=== PATIENT | female | born 1995 | race Caucasian/White ===

== ENCOUNTER 2016-04-11 16:04 | Observation (INO) | payer OTHER ==
[~2016-04-11 16:04] MED LIST: PREN1PAK2 PO; PROM25TA5 PO; PROT40TA PO
[2016-04-11 17:00] LABS: BLOOD, URINE NEG (NEG); COMMENT (UR) CULT NOT INDICATED; CULTURE IF INDICATED CULT NOT INDICATED; GLUCOSE,URINE NEG (NEG); KETONE, URINE NEG (NEG); NITRITE,URINE NEG (NEG); PH, URINE 6.5 (5.0-8.5); SQUAMOUS EPITHELIAL CELL URINE 1 /hpf (0-5); URINE COLOR YELLOW (YELLW/STRAW)
[2016-04-11] MEDS ORDERED: LACTATED RINGER'S 1000 ML INJ 1,000 ML IV ONE (17:15)
--- NOTE | 2016-04-11 17:18 | PD ---
HPI Chief Complaint Contractions sent from [facility] Date Seen: Apr 11, 2016 Travel History International Travel<30 Days: No Contact w/Intl Traveler<30Days: No History of Present Illness HPI Ms. Potts is a at 34/3 with [facility]. Patient was seen this afternoon by Mrs. Lilly [facility] at [facility] and sent over from clinic for evaluation of labor. Patient has been having contractions every 6 minutes since 1300 this afternoon she endorses good movement without loss of fluid, vaginal discharge, or bleeding. Estimated due date 05/21/16 from first ultrasound. Most recent ultrasound performed on 02/29/16 with PAT of 13.4, heart rate of 129, cephalic presentation with appropriate growth and anatomy. She states this has been uncomplicated thus far. History Past Medical History Narrative Medical Seizure and cardiac arrest leading to bundle branch block after OD from Concerta at 12 y/o. Self resolve and since been cleared by cardiology. Obstetric History Obstetric History Past Surgical History Narrative Surgical Denies Family History Narrative Family History Denies significant Hx Social History Alcohol Use: No Tobacco Use: Yes (7 cigarettes a day) Substance Abuse: Yes (marijuana with last use 1 week ago) Allergies-Medications (Allergen,Severity, Reaction): Coded Allergies: No Known Allergies (Verified , 04/11/16) Home Meds Active Scripts Pantoprazole (Protonix)40 Mg Tab40 Mg PO DAILY #30 TAB Ref 5 Prov:Radha Neal 03/13/16 Promethazine (Phenergan)25 Mg Tab25 Mg PO Q6H PRN (Nausea/Vomiting) #30 TAB Ref 2 Prov:Radha Neal 03/13/16 Reported Medications W/O Vit A W/ Fe Carbo Pack (Citranatal Dha Pack)27-1 & 250 Mg Pack1 Ea PO DAILY #6 BLISTER Ref 0 30 day supply. 02/14/16 Review of Systems General / Constitutional: No: Fever Eyes: No: Blurred Vision HENT: No: Headaches Cardiovascular: No: Chest Pain or Discomfort, Palpitations Respiratory: No: Short of Breath Gastrointestinal: Diarrhea, No: Nausea, Vomiting Genitourinary: No: Dysuria, Discharge, Vaginal Bleeding Musculoskeletal: No: Weakness Skin: No Rash Neurologic: No: Headache Psychiatric: No: Substance Abuse Endocrine: No: Polydipsia Hematologic/Lymphatic: No Lymph Node Enlargement Physical Exam Narrative GENERAL: Well-nourished, well-developed patient. SKIN: Warm and dry. HEAD: Normocephalic and atraumatic. EYES: No scleral icterus. No injection or drainage. ENT: No nasal drainage noted. Mucous membranes pink. Airway patent. NECK: Supple, trachea midline. No JVD. CARDIOVASCULAR: Regular rate and rhythm without murmurs, gallops, or rubs. RESPIRATORY: Breath sounds equal bilaterally. No accessory muscle use. ABDOMEN/GI: Abdomen soft, non-tender, bowel sounds present, no rebound, no guarding Gravid to 34 weeks size GENITOURINARY: External Genitalia: intact and normal in appearance Cervix: Posterior Dilatation: 3 cm Effacement: 20% Station: -2 Presentation: Cephalic Membranes: Intact Uterine Contractions: Every 3 minutes FHT's: Category: 1 Baseline: 120 Reactive: Positive Variability: Moderate Decels: 0 EXTREMITIES: No cyanosis or edema. BACK: Nontender without obvious deformity. No CVA tenderness. NEUROLOGICAL: Awake and alert. Motor and sensory grossly within normal limits. Five out of 5 muscle strength in all muscle groups. Normal speech. Data Data Vital Signs Reviewed: Yes Orders Vital Signs (Adult) .ON ADMISSION (04/11/16 16:25) ^ Labor Status (04/11/16 16:25) ^ Non Stress Test (04/11/16 16:25) ^ Hydration (04/11/16 16:25) Urinalysis - C+S If Indicated (04/11/16 16:32) [facility] Medical Record Reviewed: Yes Plan Ms. Potts is a at 34/3 with contractions [facility] 1. IUP at 34 weeks -Continue routine antepartum care -Category 1 tracing, reassuring -Encouraged oral hydration 2. R/O Labor -F/U fibronectin -Continuous monitoring -CBC, CMP,UA: Pending -1L LR bolus -Team will admit for observation for possible labor DW: Dr. Ochoa Diagnosis Diagnosis: Primary Impression: 34 weeks gestation of Additional Impression: contractions Miles Ridley MD R1 Apr 11, 2016 17:18 Miles Ridley MD R1 Apr 11, 2016 17:18
[2016-04-11] MEDS: LACTATED RINGER'S 1000 ML INJ 1,000 ML IV SCH (17:40)
[2016-04-11] MEDS ORDERED: ALUMINUM/MAGNESIUM/SIMETH 30 ML CUP PO PRN (17:45)
[2016-04-11] MEDS ORDERED: ZOLPIDEM TARTRATE 5 MG TAB PO PRN (17:45)
[2016-04-11] MEDS ORDERED: ONDANSETRON HCL 4 MG/2 ML VIAL IV PRN (17:45)
[2016-04-11] MEDS ORDERED: ACETAMINOPHEN 325 MG TAB PO PRN (17:45)
--- NOTE | 2016-04-11 17:48 | HHI.HP ---
History & Physical H&P HPI Chief Complaint Contractions sent from [facility] Date Seen: Apr 11, 2016 Travel History International Travel<30 Days: No Contact w/Intl Traveler<30Days: No History of Present Illness HPI Ms. Potts is a at 34/3 with [facility]. Patient was seen this afternoon by Mrs. Lilly Hoover at the [facility] and sent over from clinic for evaluation of labor. Patient has been having contractions every 6 minutes since 1300 this afternoon she endorses good movement without loss of fluid, vaginal discharge, or bleeding. Estimated due date 05/21/16 from first ultrasound. Most recent ultrasound performed on 02/29/16 with PAT of 13.4, heart rate of 129, cephalic presentation with appropriate growth and anatomy. She states this has been uncomplicated thus far. History (Limited) History Past Medical History Narrative Medical Seizure and cardiac arrest leading to bundle branch block after OD from Concerta at 12 y/o. Self resolve and since been cleared by cardiology. Obstetric History Obstetric History Past Surgical History Narrative Surgical Denies Family History Narrative Family History Denies significant Hx Social History Alcohol Use: No Tobacco Use: Yes (7 cigarettes a day) Substance Abuse: Yes (marijuana with last use 1 week ago) Allergies-Medications Allergies-Medications (Allergen,Severity, Reaction): Coded Allergies: No Known Allergies (Verified , 04/11/16) Home Meds Active Scripts Pantoprazole (Protonix)40 Mg Tab40 Mg PO DAILY #30 TAB Ref 5 Prov:Radha Neal 03/13/16 Promethazine (Phenergan)25 Mg Tab25 Mg PO Q6H PRN (Nausea/Vomiting) #30 TAB Ref 2 Prov:Radha Neal 03/13/16 Reported Medications W/O Vit A W/ Fe Carbo Pack (Citranatal Dha Pack)27-1 & 250 Mg Pack1 Ea PO DAILY #6 BLISTER Ref 0 30 day supply. 02/14/16 ROS Review of Systems General / Constitutional: No: Fever Eyes: No: Blurred Vision HENT: No: Headaches Cardiovascular: No: Chest Pain or Discomfort, Palpitations Respiratory: No: Short of Breath Gastrointestinal: Diarrhea, No: Nausea, Vomiting Genitourinary: No: Dysuria, Discharge, Vaginal Bleeding Musculoskeletal: No: Weakness Skin: No Rash Neurologic: No: Headache Psychiatric: No: Substance Abuse Endocrine: No: Polydipsia Hematologic/Lymphatic: No Lymph Node Enlargement Physical Exam Physical Exam Narrative GENERAL: Well-nourished, well-developed patient. SKIN: Warm and dry. HEAD: Normocephalic and atraumatic. EYES: No scleral icterus. No injection or drainage. ENT: No nasal drainage noted. Mucous membranes pink. Airway patent. NECK: Supple, trachea midline. No JVD. CARDIOVASCULAR: Regular rate and rhythm without murmurs, gallops, or rubs. RESPIRATORY: Breath sounds equal bilaterally. No accessory muscle use. ABDOMEN/GI: Abdomen soft, non-tender, bowel sounds present, no rebound, no guarding Gravid to 34 weeks size GENITOURINARY: External Genitalia: intact and normal in appearance Cervix: Posterior Dilatation: 3 cm Effacement: 20% Station: -2 Presentation: Cephalic Membranes: Intact Uterine Contractions: Every 3 minutes FHT's: Category: 1 Baseline: 120 Reactive: Positive Variability: Moderate Decels: 0 EXTREMITIES: No cyanosis or edema. BACK: Nontender without obvious deformity. No CVA tenderness. NEUROLOGICAL: Awake and alert. Motor and sensory grossly within normal limits. Five out of 5 muscle strength in all muscle groups. Normal speech. Data Data Data Vital Signs Reviewed: Yes Orders Vital Signs (Adult) .ON ADMISSION (04/11/16 16:25) ^ Labor Status (04/11/16 16:25) ^ Non Stress Test (04/11/16 16:25) ^ Hydration (04/11/16 16:25) Urinalysis - C+S If Indicated (04/11/16 16:32) [facility] Medical Record Reviewed: Yes Plan Ms. Potts is a at 34/3 with contractions [facility] 1. IUP at 34 weeks -Continue routine antepartum care -Category 1 tracing, reassuring -Encouraged oral hydration 2. R/O Labor -F/U fibronectin -Continuous monitoring -CBC, CMP,UA: Pending -1L LR bolus -Team will admit for observation for possible labor DW: Dr. Ochoa Diagnosis Diagnosis: Primary Impression: 34 weeks gestation of Additional Impression: contractions Miles Ridley MD R1 Apr 11, 2016 17:48
[2016-04-11 18:41] LABS: AUTOMATED NEUTROPHIL # 7.3 TH/MM3 (1.8-7.7); BASOPHIL % 0.4 % (0.0-2.0); EOSINOPHIL % 0.5 % (0.0-4.0); HEMATOCRIT 32.9 % (35.0-46.0); HEMO FLAGS DIFF FINAL; LYMPH % 22.5 % (9.0-44.0); LYMPHOCYTE # 2.4 TH/MM3 (1.0-4.8); MEAN CELL VOLUME 88.4 FL (80.0-100.0); MEAN CORPUSCULAR HEMOGLOBIN 30.7 PG (27.0-34.0); MEAN CORPUSCULAR HGB CONC 34.7 % (32.0-36.0); MONO % 6.5 % (0.0-8.0); NEUT % 70.1 % (16.0-70.0); PLATELET COUNT 264 TH/MM3 (150-450); RED BLOOD COUNT 3.72 MIL/MM3 (4.00-5.30); RED CELL DISTRIBUTION WIDTH 12.2 % (11.6-17.2); WHITE BLOOD COUNT 10.4 TH/MM3 (4.0-11.0)
[2016-04-11] MEDS: BETAMETHASONE SOD PHOS/ACETATE SUSP 30 MG/5 ML VIAL IM SCH (18:59)
[2016-04-11 19:18] LABS: AMPHETAMINE, URINE NEG (NEG); BARBITURATES, URINE NEG (NEG); COCAINE, URINE NEG (NEG)
[2016-04-11 20:34] LABS: ALKALINE PHOSPHATASE 162 U/L (45-117); ALT (GPT) 9 U/L (10-53); ANION GAP 11 MEQ/L (5-15); AST (GOT) 7 U/L (15-37); BLOOD UREA NITROGEN 5 MG/DL (7-18); CHLORIDE 106 MEQ/L (98-107); GLOMERULAR FILTRATION RATE 146 ML/MIN (>89); POTASSIUM 3.1 MEQ/L (3.5-5.1); SODIUM (NA) 139 MEQ/L (136-145); TOTAL BILIRUBIN ADULT 0.2 MG/DL (0.2-1.0)
--- NOTE | 2016-04-11 20:56 | PD.LABORPN ---
Subjective Subjective Patient continues to complain of pain in the lower abdomen states they feel like contractions the baby is active hurts more when the baby moves No leaking fluid no vaginal bleeding Objective Objective Pelvic exam is repeated and there was no cervical change from the admission the cervix is posterior its thick it's 3 cm Pelvic Exam: Cervix: [-] O steering Dilatation: [-] 3centimeter Effacement: [-] Thick Station: [-] Ballotable Presentation: [-] Vertex Membranes: [intact Uterine Contractions: [-] Irregular FHT's: Category: [-] 1 Baseline: [-] 120 Reactive: [-]+ Variability: [-] Moderate [id number] variability Decels: [-] Has an occasional variable Bedside ultrasound was done it is a vertex presentation the BPD measures 8.76 this is consistent with 35 weeks and 3 days Positive flexion Positive tone Positive breathing Amniotic fluid index is approximately 14 Reactive tracing Posterior grade 2 placenta no ultrasound evidence of abruption No previa Ultrasound shows that the internal os is open And that the membranes bulged down into the cervix slightly Assessment/Plan Assessment and Plan Assessment 34 weeks and 3 days by earlier ultrasounds 35 weeks and 3 days by bedside ultrasound this evening Diagnosed with premature labor/ contractions Patient was initiated with steroids her second dose is due at 4 PM April 12 tomorrow Antibiotic coverage penicillin Pain management And reevaluation As there is no cervical change we'll continue our observation of this patient noted toco lysis have been used Labs show the cultures not indicated on the urine White count is not elevated Positive marijuana Plan a management Tayler Shea MD Apr 11, 2016 20:56
[2016-04-11] MEDS ORDERED: PENICILLIN G POTASSIUM INJ 5,000,000 UNITS in SODIUM CHLORIDE 0.9% INJ 100 ML IV ONE (21:00)
[2016-04-11] MEDS: SODIUM CHLORIDE 0.9% FLUSH 5 ML FLUSH IVF SCH (21:00)
[2016-04-12] MEDS: PENICILLIN G POTASSIUM INJ 2,500,000 UNITS in SODIUM CHLORIDE 0.9% INJ 100 ML IV SCH ×6 (01:00→18:40)
[2016-04-12] MEDS: LACTATED RINGER'S 1000 ML INJ 1,000 ML IV SCH (03:40)
[2016-04-12] MEDS ORDERED: MULTIVIT/MIN/PREN/FOL AC/IRON PRENATAL TAB PO SCH (09:00)
[2016-04-12] MEDS ORDERED: DOCUSATE SODIUM 100 MG CAP PO SCH (09:00)
[2016-04-12] MEDS: SODIUM CHLORIDE 0.9% FLUSH 5 ML FLUSH IVF SCH (09:00)
[2016-04-12] MEDS: SODIUM CHLORIDE 0.9% FLUSH 5 ML FLUSH IVF PRN ×3 (09:24→13:00)
--- NOTE | 2016-04-12 09:29 | PD.OB.ANTE ---
Subjective Interval History OB team evaluated and examined patient this morning. No acute events overnight with stable vital signs. Patient's contractions subsided with IV fluid hydration. She endorses good movement without discharge, loss of fluid, or bleeding. She has no other complaints and denies any fevers, chills, and NVD , shortness of breath, chest pain, or calf tenderness. Antepartum ROS: Reports: movement normal, Denies: New complaints, Loss of fluid, Vaginal bleeding, Contractions Objective Lab & Micro Results Test 04/11/16 04/11/16 04/11/16 16:30 17:00 19:44 Urine Color YELLOW Urine Turbidity CLEAR Urine pH 6.5 Urine Specific [place] 1.011 Urine Protein NEG mg/dL Urine Glucose (UA) NEG mg/dL Urine Ketones NEG mg/dL Urine Occult Blood NEG Urine Nitrite NEG Urine Bilirubin NEG Urine Urobilinogen LESS THAN 2.0 MG/DL Urine Leukocyte Esterase TRACE Urine RBC LESS THAN 1 /hpf Urine WBC 1 /hpf Urine Squamous Epithelial 1 /hpf Cells Microscopic Urinalysis Comment CULT NOT INDICATED Urine Opiates Screen NEG Urine Barbiturates Screen NEG Urine Amphetamines Screen NEG Urine Benzodiazepines Screen NEG Urine Cocaine Screen NEG Urine Cannabinoids Screen POS White Blood Count 10.4 TH/MM3 Red Blood Count 3.72 MIL/MM3 Hemoglobin 11.4 GM/DL Hematocrit 32.9 % Mean Corpuscular Volume 88.4 FL Mean Corpuscular Hemoglobin 30.7 PG Mean Corpuscular Hemoglobin 34.7 % Concent Red Cell Distribution Width 12.2 % Platelet Count 264 TH/MM3 Mean Platelet Volume 8.9 FL Neutrophils (%) (Auto) 70.1 % Lymphocytes (%) (Auto) 22.5 % Monocytes (%) (Auto) 6.5 % Eosinophils (%) (Auto) 0.5 % Basophils (%) (Auto) 0.4 % Neutrophils # (Auto) 7.3 TH/MM3 Lymphocytes # (Auto) 2.4 TH/MM3 Monocytes # (Auto) 0.7 TH/MM3 Eosinophils # (Auto) 0.0 TH/MM3 Basophils # (Auto) 0.0 TH/MM3 CBC Comment DIFF FINAL Differential Comment Band and Hold Sodium Level 139 MEQ/L Potassium Level 3.1 MEQ/L Chloride Level 106 MEQ/L Carbon Dioxide Level 22.0 MEQ/L Anion Gap 11 MEQ/L Blood Urea Nitrogen 5 MG/DL Creatinine 0.53 MG/DL Estimat Glomerular Filtration 146 ML/MIN Rate Random Glucose 103 MG/DL Calcium Level 8.0 MG/DL Total Bilirubin 0.2 MG/DL Aspartate Amino Transf 7 U/L (AST/SGOT) Alanine Aminotransferase 9 U/L (ALT/SGPT) Alkaline Phosphatase 162 U/L Total Protein 6.0 GM/DL Albumin 2.3 GM/DL Physical Exam GENERAL: Well-nourished, well-developed patient. CARDIOVASCULAR: Regular rate and rhythm without murmurs, gallops, or rubs. RESPIRATORY: Breath sounds equal bilaterally. No accessory muscle use. ABDOMEN/GI: Abdomen soft, non-tender. Fundus: 34 GENITOURINARY: FHT's: Category: 1 Baseline: 120 Reactive: Positive Variability: Moderate Decels: None EXTREMITIES: No cyanosis or edema, non-tender, without signs of DVT. Assessment and Plan Assessment and Plan Ms. Potts is a at 34/3 with contractions admitted for observation to rule out labor. 1. IUP at 34 weeks -Continue routine antepartum care -Category 1 tracing, reassuring -Encouraged oral hydration 2. Labor -Betamethasone given 1 yesterday, with next dose due at 1600 on 04/12/16 -OB Diagnostic US: BPP 01/15 with good anatomy and growth. NG given for GBS coverage due to unknown status CBC: WBC 10.4, H/H 11.4/32.9, platelets 264 CMP: Potassium 3.1, repleted. Alkaline phosphatase 162 Discharge: OB team to reevaluate patient for likely discharge after second dose of steroids this evening if no cervical change and contractions. DW: Miles Wen MD R1 Apr 12, 2016 09:29
[2016-04-12 15:59] VITALS: BP 121/71; PULSE 82
[2016-04-12 16:01] VITALS: RESP 16
--- NOTE | 2016-04-12 18:58 | PD.OB.ANTE ---
Subjective Interval History History is 34 weeks to 35 weeks with threatened labor. Patient received IM steroids 24 hours ago and now for second shot. She's been here on labor and delivery for observation she has not been shamar over the last 12-18 hours. Her NST is been reactive no signs of distress and no regular contractions. Will proceed with second steroid shot & discharge patient. Objective Vital Signs Vital Signs Date Time Temp Pulse Resp B/P Pulse Ox O2 Delivery O2 Flow Rate FiO2 04/12/16 16:01 16 04/12/16 15:59 82 121/71 04/11/16 22:37 16 Lab & Micro Results Test 04/11/16 19:44 Sodium Level 139 MEQ/L Potassium Level 3.1 MEQ/L Chloride Level 106 MEQ/L Carbon Dioxide Level 22.0 MEQ/L Anion Gap 11 MEQ/L Blood Urea Nitrogen 5 MG/DL Creatinine 0.53 MG/DL Estimat Glomerular Filtration 146 ML/MIN Rate Random Glucose 103 MG/DL Calcium Level 8.0 MG/DL Total Bilirubin 0.2 MG/DL Aspartate Amino Transf 7 U/L (AST/SGOT) Alanine Aminotransferase 9 U/L (ALT/SGPT) Alkaline Phosphatase 162 U/L Total Protein 6.0 GM/DL Albumin 2.3 GM/DL Physical Exam GENERAL: Well-nourished, well-developed patient. CARDIOVASCULAR: Regular rate and rhythm without murmurs, gallops, or rubs. RESPIRATORY: Breath sounds equal bilaterally. No accessory muscle use. ABDOMEN/GI: Abdomen soft, non-tender. Fundus: [-] GENITOURINARY: External Genitalia: intact and normal in appearance Cervix: [-] Dilatation: [-] Effacement: [-] Station: [-] Presentation: [-] Membranes: [-] Uterine Contractions: [-] FHT's: Category: [-] Baseline: [-] Reactive: [-] Variability: [-] Decels: [-] EXTREMITIES: No cyanosis or edema, non-tender, without signs of DVT. Assessment and Plan Assessment and Plan Ms. Potts is a at 34/3 with contractions admitted for observation to rule out labor. 1. IUP at 34 weeks -Continue routine antepartum care -Category 1 tracing, reassuring -Encouraged oral hydration 2. Labor -Betamethasone given 1 yesterday, with next dose due at 1600 on 04/12/16 -OB Diagnostic US: BPP 10/10 with good anatomy and growth. NG given for GBS coverage due to unknown status CBC: WBC 10.4, H/H 11.4/32.9, platelets 264 CMP: Potassium 3.1, repleted. Alkaline phosphatase 162 Discharge: OB team to reevaluate patient for likely discharge after second dose of steroids this evening if no cervical change and contractions. DW: Rakesh Hector II, MD Apr 12, 2016 18:58
[2016-04-12] MEDS: BETAMETHASONE SOD PHOS/ACETATE SUSP 30 MG/5 ML VIAL IM SCH (19:16)
[2016-04-17 11:05] LABS: BATH SALTS (MDPV) UR NEG (NEG); ECSTASY (MDMA) UR NEG (NEG); HEROIN (6-ACETYLMORPHINE) UR NEG (NEG); K2 SPICE UR NEG (NEG); OBMETHADONE UR NEG (NEG); OXYCODONE (PERCODAN) NEG (NEG); PHENCYCLIDINE URINE NEG (NEG)
[2016-05-28] MEDS ORDERED: NORE0.354 PO (13:54)
[2016-05-28] MEDS ORDERED: DIFL150T PO (13:54)
[2016-07-10] MEDS ORDERED: MACR100C2 PO (16:34)
== END 2016-04-12 19:27 | disposition home or self-care (01) ==
LOC: HOBED 16:04 → H2EA 17:34
PROVIDERS: ADMIT Obstetrics & Gynecology; ATTEND Obstetrics & Gynecology
DX: O60.03 Preterm labor without delivery, third trimester (principal); O99.333 Smoking (tobacco) complicating pregnancy, third trimester; F17.210 Nicotine dependence, cigarettes, uncomplicated; Z3A.34 34 weeks gestation of pregnancy; Z86.74 Personal history of sudden cardiac arrest
CPT/HCPCS: 59025; 76816; 80053; 80307; 81001; 85025; 96360; 99284; G0378; G0481; J0702; J2540; J3010; J7120; 80352; 80354; 80356; 80358; 80359; 80371; 83789; 83992; G0480

== ENCOUNTER 2016-05-20 16:55 | Inpatient (IN) | payer OTHER ==
[2016-05-20] VITALS (51 sets, daily range): BP systolic 85–150; BP diastolic 49–92; PULSE 72–168; RESP 18; TEMP 98.7
[~2016-05-20] VITALS: Ht 170.2 cm; Wt 78.0 kg
[~2016-05-20 16:55] MED LIST changes: +DIPHTH/TETANUS/ACEL PERTUSSIS (BOOSTER) 0.5 ML VIAL/PFS IM ONE; +MEASLES, MUMPS, RUBELLA VACCINE 0.5 ML VIAL SQ ONE
[2016-05-20] MEDS ORDERED: LACTATED RINGER'S 1000 ML INJ 1,000 ML IV PRN (17:10)
[2016-05-20] MEDS ORDERED: LACTATED RINGER'S 1000 ML INJ 1,000 ML IV SCH (17:10)
[2016-05-20] MEDS ORDERED: OXYTOCIN 30 UNITS-500ML PREMIX 500 ML IV ONE (17:15)
[2016-05-20] MEDS ORDERED: LIDOCAINE HCL 1% 50 ML VIAL I-DERMAL PRN (17:15)
[2016-05-20] MEDS ORDERED: SODIUM CHLORID 0.9% 500 ML INJ 500 ML IV PRN (17:15)
[2016-05-20] MEDS ORDERED: PENICILLIN G POTASSIUM INJ 5,000,000 UNITS in SODIUM CHLORIDE 0.9% INJ 100 ML IV ONE (17:15)
[2016-05-20] MEDS ORDERED: CITRIC ACID-SODIUM CITRATE LIQ 30 ML UDC PO SCH (17:15)
[2016-05-20] MEDS ORDERED: LIDOCAINE HCL 1% 50 ML VIAL INFIL PRN (17:15)
[2016-05-20] MEDS ORDERED: MINERAL OIL 10 ML VIAL TOPICAL PRN (17:15)
[2016-05-20] MEDS ORDERED: fentaNYL 2MCG-BUPIV 0.125% INJ 100 ML ONE (17:17)
[2016-05-20] MEDS ORDERED: ePHEDrine/NS 25 MG/5 ML SYR ONE (17:17)
--- NOTE | 2016-05-20 17:19 | PD ---
HPI Chief Complaint Complaints of contractions Date Seen: May 20, 2016 Travel History International Travel<30 Days: No Contact w/Intl Traveler<30Days: No Known Affected Area: No History of Present Illness HPI Patient is 21-year-old white female at 40 weeks gestation presents in active labor 6 cm intact membranes no bleeding. The contractions are regular heart rate tracing is reactive Para: 0 : 1 History Past Medical History Medical History: Denies Significant Hx Social History Alcohol Use: No Tobacco Use: No Substance Abuse: No Allergies-Medications (Allergen,Severity, Reaction): Coded Allergies: No Known Allergies (Verified , 05/16/16) Home Meds Active Scripts Pantoprazole (Protonix)40 Mg Tab40 Mg PO DAILY #30 TAB Ref 5 Prov:Radha Neal 03/13/16 Promethazine (Phenergan)25 Mg Tab25 Mg PO Q6H PRN (Nausea/Vomiting) #30 TAB Ref 2 Prov:Radha Neal 03/13/16 Reported Medications W/O Vit A W/ Fe Carbo Pack (Citranatal Dha Pack)27-1 & 250 Mg Pack1 Ea PO DAILY #6 BLISTER Ref 0 30 day supply. 02/14/16 Review of Systems General / Constitutional: No: Fever, Weight Gain, Chills, Other Eyes: No: Diploplia, Blurred Vision, Visual changes, Pain, Photophobia HENT: No: Headaches, Vertigo, Lightheadedness Cardiovascular: No: Irregular Rhythm, Chest Pain or Discomfort, Palpitations, Tachycardia, Syncope, Varicosities, Edema, Cyanosis Respiratory: No: Cough, Short of Breath, Other Gastrointestinal: Nausea, Vomiting, No: Diarrhea Genitourinary: No: Decreased Urinary Output, Oliguria Musculoskeletal: No: Limited ROM, Weakness, Cramping, Edema, Pain Skin: No Rash, No Itching, No Dryness, No Lumps, No Change in Pigmentation, No Change in Nails, No Alopecia, No Lesions Neurologic: No: Weakness, Dizziness, Syncope, Focal Abnormalities, Coordination Problem, Headache, Slurred Speech, Seizures Psychiatric: No: Depression, Suicidal Ideations, Homicidal Ideation Endocrine: No: Heat Intolerance, Cold Intolerance, Polydipsia, Polyuria, Other Physical Exam Narrative GENERAL: Well-nourished, well-developed patient. SKIN: Warm and dry. HEAD: Normocephalic and atraumatic. EYES: No scleral icterus. No injection or drainage. ENT: No nasal drainage noted. Mucous membranes pink. Airway patent. NECK: Supple, trachea midline. No JVD. CARDIOVASCULAR: Regular rate and rhythm without murmurs, gallops, or rubs. RESPIRATORY: Breath sounds equal bilaterally. No accessory muscle use. BREASTS: Bilateral exam showed no masses , no retractions, no nipple discharge. ABDOMEN/GI: Abdomen soft, non-tender, bowel sounds present, no rebound, no guarding Gravid to [-40] weeks size Fundal Height: [38 cm-] GENITOURINARY: External Genitalia: intact and normal in appearance BUS glands: [-] Cervix: [-] Dilatation: [-6] Effacement: [-80] Station: [-2] Presentation: [-vtx] Membranes: [intact ] Uterine Contractions: [-reg] FHT's: Category: [1-] Baseline: [133-] Reactive: [-yes] Variability: [-mod] Decels: [early decels-] EXTREMITIES: No cyanosis or edema. BACK: Nontender without obvious deformity. No CVA tenderness. NEUROLOGICAL: Awake and alert. Motor and sensory grossly within normal limits. Five out of 5 muscle strength in all muscle groups. Normal speech. Data Data Orders Ob (2e) Additional Admit Info (05/20/16 17:00) Admit To Inpatient (05/20/16 ) Code Status (05/20/16 17:10) Vital Signs (Adult) .Per protocol (05/20/16 17:10) ^ Heart (05/20/16 17:10) ^ Amnioinfusion (05/20/16 17:10) Urinary Catheter Management .ONCE (05/20/16 17:10) Lactated Ringer's 1000 Ml Inj (Lr 1000 M (05/20/16 17:10) Lactated Ringer's 1000 Ml Inj (Lr 1000 M (05/20/16 17:10) Sodium Chlorid 0.9% 500 Ml Inj (Ns 500 M (05/20/16 17:15) Sodium Chlor 0.9% 1000 Ml Inj (Ns 1000 M (05/20/16 17:30) Lidocaine 1% Inj (50 Ml) (Xylocaine 1% I (05/20/16 17:15) Citric Acid-Sodium Citrate Liq (Bicitra (05/20/16 17:15) Fentanyl Inj (Fentanyl Inj) (05/20/16 17:15) Fentanyl Inj (Fentanyl Inj) (05/20/16 17:15) Penicillin G Potassium Inj (Pfizerpen-G (05/20/16 17:15) Penicillin G Potassium Inj (Pfizerpen-G (05/20/16 21:15) Resp Oxygen Non Rebreathe Mask (05/20/16 ) ^ Epidural / Intrathecal Infus (05/20/16 17:10) Oxytocin 30 Units-500ml Premix (Pitocin (05/20/16 17:15) Lidocaine 1% Inj (50 Ml) (Xylocaine 1% I (05/20/16 17:15) Light Mineral Oil (Muri-Lube Oil) (05/20/16 17:15) Inpatient Certification (05/20/16 ) MDM Interpretation(s) This patient is 17-year-old primipara at 40 weeks in active labor 6 centimeters dilated, no bleeding contractions regular heart rate tracing is reactive. [facility] Plan The plan is to admit the patient and anticipate vaginal delivery Diagnosis Diagnosis: Primary Impression: Abdominal pain affecting , antepartum Rakesh Daniel II, MD May 20, 2016 17:19
--- NOTE | 2016-05-20 17:29 | PD ---
HPI Chief Complaint labor Date Seen: May 20, 2016 Travel History International Travel<30 Days: No Contact w/Intl Traveler<30Days: No History of Present Illness HPI Ms. Potts is a 21 yo G1 at 39 5/7 week patient of [facility] who presents with contractions. History supplemented by patient's mother due to patient abdominal pain/contractions. Patient reports that she is GBS positive. No complications reported; patient specifically denies ultrasound abnormalities, gestational hypertension, and gestational diabetes. Patient denies history of herpes or genital lesions. Patient states she had chlamydia 3 years ago but has been negative since. No reported shortness of breath, calf tenderness, or chest pain. Mother reports that she smokes 23 cigarettes daily during , but denies alcohol or illicit drug use. Per prior records, patient had prior positive UDS for marijuana 04/2016. 1 hr glucose testing elevated; patient did not obtain 3 hr testing. Para: 0 : 1 History Past Medical History Narrative Medical Nausea/vomiting during Obstetric History Obstetric History G1 Past Surgical History Surgical History: No Previous Surgery Family History Narrative Family History None reported Social History Alcohol Use: No Tobacco Use: Yes Substance Abuse: Yes (marijuana on prior UDS) Allergies-Medications (Allergen,Severity, Reaction): Coded Allergies: No Known Allergies (Verified , 05/20/16) Home Meds Active Scripts Pantoprazole (Protonix)40 Mg Tab40 Mg PO DAILY #30 TAB Ref 5 Prov:Radha Neal 03/13/16 Promethazine (Phenergan)25 Mg Tab25 Mg PO Q6H PRN (Nausea/Vomiting) #30 TAB Ref 2 Prov:Radha Neal 03/13/16 Reported Medications W/O Vit A W/ Fe Carbo Pack (Citranatal Dha Pack)27-1 & 250 Mg Pack1 Ea PO DAILY #6 BLISTER Ref 0 30 day supply. 02/14/16 Review of Systems Cardiovascular: No: Chest Pain or Discomfort Respiratory: No: Cough, Short of Breath Gastrointestinal: Nausea (during ), Vomiting (during ) Physical Exam Narrative BP 129/78 HR 87 GENERAL: Mild distress due to pain of labor SKIN: Multiple small crusted circular lesions on legs; do not seem to follow dermatomal pattern seem consistent with insect bites EYES: No scleral icterus. No injection or drainage. ENT: No nasal drainage noted. Mucous membranes pink. Airway patent. CARDIOVASCULAR: Regular rate and rhythm without murmurs to auscultation RESPIRATORY: Normal rate; clear to auscultation bilaterally ABDOMEN/GI: Abdomen soft, non-tender, bowel sounds present, no rebound, no guarding Gravid EXTREMITIES: No LE edema. NEUROLOGICAL: Awake and alert. Motor and sensory function grossly within normal limits. GENITOURINARY: Performed by nursing staff External Genitalia: intact and normal in appearance Cervix: Dilatation: 6-7 cm Effacement: Station: Presentation: V Membranes: Intact Uterine Contractions: q3min FHT's: Category: 1 Baseline: 145 Reactive: Y Variability: Moderate Decels: None Data Data Vital Signs Reviewed: Yes Orders Ob (2e) Additional Admit Info (05/20/16 17:00) MDM Medical Record Reviewed: Yes Narrative Course / MDM 21 yo G1 at 39 5/7 weeks Impression: Category 1 rhythm Active labor contractions q3 min GBS+ marijuana use, smoking Possible gestational DM; not confirmed Review of records: HIV, Hep B negative Plan: -Will admit for active labor -Will obtain CBC, blood typing, Hold clot, UA -Epidural -GBS ppx with PCN -UDS for maternal drug use Carlos Blunt MD R2 May 20, 2016 17:29
[2016-05-20] MEDS ORDERED: SODIUM CHLOR 0.9% 1000 ML INJ 1,000 ML IV PRN (17:30)
[2016-05-20 17:40] LABS: AUTOMATED NEUTROPHIL # 9.9 TH/MM3 (1.8-7.7); BASOPHIL # 0.1 TH/MM3 (0-0.2); BASOPHIL % 0.4 % (0.0-2.0); EOSINOPHIL % 0.1 % (0.0-4.0); HEMATOCRIT 34.9 % (35.0-46.0); HEMO FLAGS DIFF FINAL; LYMPH % 18.7 % (9.0-44.0); LYMPHOCYTE # 2.5 TH/MM3 (1.0-4.8); MEAN CELL VOLUME 84.3 FL (80.0-100.0); MEAN CORPUSCULAR HEMOGLOBIN 29.4 PG (27.0-34.0); MEAN CORPUSCULAR HGB CONC 34.9 % (32.0-36.0); MONO % 7.2 % (0.0-8.0); NEUT % 73.6 % (16.0-70.0); PLATELET COUNT 264 TH/MM3 (150-450); RED BLOOD COUNT 4.14 MIL/MM3 (4.00-5.30); RED CELL DISTRIBUTION WIDTH 13.5 % (11.6-17.2); WHITE BLOOD COUNT 13.4 TH/MM3 (4.0-11.0)
[2016-05-20 17:45] LABS: BLOOD, URINE NEG (NEG); GLUCOSE,URINE NEG (NEG); KETONE, URINE NEG (NEG); NITRITE,URINE NEG (NEG); PH, URINE 7.5 (5.0-8.5); SQUAMOUS EPITHELIAL CELL URINE 1 /hpf (0-5); URINE COLOR YELLOW (YELLW/STRAW)
[2016-05-20 17:46] LABS: COMMENT (UR) CULT NOT INDICATED; CULTURE IF INDICATED CULT NOT INDICATED
[2016-05-20 17:48] LABS: AMPHETAMINE, URINE NEG (NEG); BARBITURATES, URINE NEG (NEG); COCAINE, URINE NEG (NEG)
--- NOTE | 2016-05-20 18:23 | HHI.HP ---
History & Physical H&P Patient Name: Jeannette Potts Unit Number: [id number] Date of : 1995 Patient Status: Admitted Inpatient Attending Doctor: Rakesh Daniel II, MD HPI HPI Chief Complaint labor Date Seen: May 20, 2016 Travel History International Travel<30 Days: No Contact w/Intl Traveler<30Days: No History of Present Illness HPI Ms. Potts is a 21 yo G1 at 39 5/7 week patient of [facility] who presents with contractions. History supplemented by patient's mother due to patient abdominal pain/contractions. Patient reports that she is GBS positive. No complications reported; patient specifically denies ultrasound abnormalities, gestational hypertension, and gestational diabetes. Patient denies history of herpes or genital lesions. Patient states she had chlamydia 3 years ago but has been negative since. No reported shortness of breath, calf tenderness, or chest pain. Mother reports that she smokes 23 cigarettes daily during , but denies alcohol or illicit drug use. Per prior records, patient had prior positive UDS for marijuana 04/2016. 1 hr glucose testing elevated; patient did not obtain 3 hr testing. Para: 0 : 1 History (Limited) History Past Medical History Narrative Medical Nausea/vomiting during Obstetric History Obstetric History G1 Past Surgical History Surgical History: No Previous Surgery Family History Narrative Family History None reported Social History Alcohol Use: No Tobacco Use: Yes Substance Abuse: Yes (marijuana on prior UDS) Allergies-Medications Allergies-Medications (Allergen,Severity, Reaction): Coded Allergies: No Known Allergies (Verified , 05/20/16) Home Meds Active Scripts Pantoprazole (Protonix)40 Mg Tab40 Mg PO DAILY #30 TAB Ref 5 Prov:Radha Neal 03/13/16 Promethazine (Phenergan)25 Mg Tab25 Mg PO Q6H PRN (Nausea/Vomiting) #30 TAB Ref 2 Prov:Radha Neal 03/13/16 Reported Medications W/O Vit A W/ Fe Carbo Pack (Citranatal Dha Pack)27-1 & 250 Mg Pack1 Ea PO DAILY #6 BLISTER Ref 0 30 day supply. 02/14/16 ROS Review of Systems Cardiovascular: No: Chest Pain or Discomfort Respiratory: No: Cough, Short of Breath Gastrointestinal: Nausea (during ), Vomiting (during ) Physical Exam Physical Exam Narrative BP 129/78 HR 87 GENERAL: Mild distress due to pain of labor SKIN: Multiple small crusted circular lesions on legs; do not seem to follow dermatomal pattern seem consistent with insect bites EYES: No scleral icterus. No injection or drainage. ENT: No nasal drainage noted. Mucous membranes pink. Airway patent. CARDIOVASCULAR: Regular rate and rhythm without murmurs to auscultation RESPIRATORY: Normal rate; clear to auscultation bilaterally ABDOMEN/GI: Abdomen soft, non-tender, bowel sounds present, no rebound, no guarding Gravid EXTREMITIES: No LE edema. NEUROLOGICAL: Awake and alert. Motor and sensory function grossly within normal limits. GENITOURINARY: Performed by nursing staff External Genitalia: intact and normal in appearance Cervix: Dilatation: 6-7 cm Effacement: Station: Presentation: V Membranes: Intact Uterine Contractions: q3min FHT's: Category: 1 Baseline: 145 Reactive: Y Variability: Moderate Decels: None Data Data Data Vital Signs Reviewed: Yes Orders Ob (2e) Additional Admit Info (05/20/16 17:00) MDM MDM Medical Record Reviewed: Yes Narrative Course / MDM 21 yo G1 at 39 5/7 weeks Impression: Category 1 rhythm Active labor contractions q3 min GBS+ marijuana use, smoking Possible gestational DM; not confirmed Review of records: HIV, Hep B negative Plan: -Will admit for active labor -Will obtain CBC, blood typing, Hold clot, UA -Epidural -GBS ppx with PCN -UDS for maternal drug use Carlos Blunt MD R2 May 20, 2016 18:23
[2016-05-20] MEDS ORDERED: fentaNYL 2MCG-BUPIV 0.125% INJ 100 ML EPIDURAL SCH (19:15)
[2016-05-20] MEDS ORDERED: NO SYSTEM NARCOTICS XX PRN (19:15)
[2016-05-20] MEDS ORDERED: ePHEDrine/NS 50 MG/5 ML SYR IV PRN (19:15)
[2016-05-20] MEDS ORDERED: DO NOT ADMINISTER ANTICOAGULANTS XX PRN (19:15)
--- NOTE | 2016-05-20 20:44 | PD.OB.DELI ---
Delivery Date: May 20, 2016 Anesthesia: Epidural Episiotomy: None Vaginal Delivery: Normal Presentation: Occiput anterior Nuchal Cord: x1 Delayed cord clamping (45 sec): Yes : Male One Minute : 9 Five Minute : 9 Weight: 3205 g Infant Care: Suctioned, Responded to stimulation Placenta: Spontaneous delivery Laceration: No lacerations Additional Information Delivered by Dr. Stahl Supervised by Aron Villa MD R1 May 20, 2016 20:44
[2016-05-20] MEDS ORDERED: ACETAMINOPHEN 325 MG TAB PO PRN (20:45)
[2016-05-20] MEDS ORDERED: ALUMINUM/MAGNESIUM/SIMETH 30 ML CUP PO PRN (20:45)
[2016-05-20] MEDS ORDERED: WITCH HAZEL 50%/GLYCERIN 12.5% 40 PAD JAR TOPICAL PRN (20:45)
[2016-05-20] MEDS ORDERED: ONDANSETRON ODT 4 MG TAB PO PRN (20:45)
[2016-05-20] MEDS ORDERED: BENZOCAINE 20% TOPICAL SPRAY 60 ML CAN TOPICAL PRN (20:45)
[2016-05-20] MEDS ORDERED: DOCUSATE SODIUM 50 MG/SENNA 8.6 MG TAB PO PRN (20:45)
[2016-05-20] MEDS ORDERED: SODIUM CHLORIDE 0.9% FLUSH 5 ML FLUSH IV PRN (20:45)
[2016-05-20] MEDS ORDERED: ZOLPIDEM TARTRATE 5 MG TAB PO PRN (20:45)
--- NOTE | 2016-05-20 20:49 | PD.LABORPN ---
Subjective Subjective OB attending delivery note Patient is a 40 weeks gestation and delivered spontaneously over an intact perineum. Nuchal cord reduced on the perineum and bulb suction on the perineum baby delivered without difficulty weight 3205 g 9 and 9 male done by the child and family therapist supervised. There are no lacerations bleeding was estimated blood loss was 100 cc, and mother baby doing well. Objective Vital Signs Vital Signs Date Time Temp Pulse Resp B/P Pulse Ox O2 Delivery O2 Flow Rate FiO2 05/20/16 19:59 18 05/20/16 19:55 89 05/20/16 19:50 77 05/20/16 19:45 86 05/20/16 19:45 115/72 05/20/16 19:40 100 05/20/16 19:35 89 05/20/16 19:31 80 102/52 05/20/16 19:30 80 18 05/20/16 19:25 84 05/20/16 19:21 79 85/65 05/20/16 19:20 86 05/20/16 19:15 78 106/63 05/20/16 19:10 79 101/52 05/20/16 19:06 78 108/64 05/20/16 19:05 80 05/20/16 19:01 91 111/74 05/20/16 19:00 98.7 05/20/16 19:00 82 05/20/16 18:59 18 05/20/16 18:55 93 130/64 05/20/16 18:50 78 122/68 05/20/16 18:46 75 96/49 05/20/16 18:45 80 05/20/16 18:40 72 103/64 05/20/16 18:35 79 110/57 05/20/16 18:31 168 96/71 05/20/16 18:30 76 05/20/16 18:26 77 104/63 05/20/16 18:25 78 05/20/16 18:21 105 117/92 05/20/16 18:20 82 05/20/16 18:17 74 106/61 05/20/16 18:15 77 05/20/16 18:11 73 119/60 05/20/16 18:10 79 05/20/16 18:07 86 122/68 05/20/16 18:05 90 05/20/16 18:01 88 131/62 05/20/16 18:00 90 05/20/16 17:56 159 150/82 05/20/16 17:55 92 05/20/16 17:50 91 05/20/16 17:45 83 05/20/16 17:40 83 05/20/16 17:35 87 05/20/16 17:30 81 05/20/16 17:25 78 05/20/16 17:20 77 Objective Rakesh Daniel II, MD May 20, 2016 20:49
[2016-05-20] MEDS: SODIUM CHLORIDE 0.9% FLUSH 5 ML FLUSH IV SCH (21:00)
[2016-05-20] MEDS ORDERED: PENICILLIN G POTASSIUM INJ 2,500,000 UNITS in SODIUM CHLORIDE 0.9% INJ 100 ML IV SCH (21:00)
[2016-05-21] MEDS: IBUPROFEN 600 MG TAB PO PRN ×2 (04:21→10:13)
--- NOTE | 2016-05-21 07:54 | HHI.OB ---
Subjective Post Day: 1 Remarks PPD1. Pain well-controlled. Eating, voiding, stooling, ambulating without difficulty. Encouraged OOB. Intends to formula feed (UDS+ cannabinoids). Would like OCP (Seasonique) for contraception- has used in past with good results. Will follow up with [facility]. Denies fevers/chills, SOB/chest pain, calf pain. Objective Vitals/I&O Vital Signs Date Time Temp Pulse Resp B/P Pulse Ox O2 Delivery O2 Flow Rate FiO2 05/20/16 21:01 92 135/75 05/20/16 20:57 18 05/20/16 20:46 84 132/72 05/20/16 20:15 96 137/77 05/20/16 19:59 18 05/20/16 19:55 89 05/20/16 19:50 77 05/20/16 19:45 86 05/20/16 19:45 115/72 05/20/16 19:40 100 05/20/16 19:35 89 05/20/16 19:31 80 102/52 05/20/16 19:30 80 18 05/20/16 19:25 84 05/20/16 19:21 79 85/65 05/20/16 19:20 86 05/20/16 19:15 78 106/63 05/20/16 19:10 79 101/52 05/20/16 19:06 78 108/64 05/20/16 19:05 80 05/20/16 19:01 91 111/74 05/20/16 19:00 98.7 05/20/16 19:00 82 05/20/16 18:59 18 05/20/16 18:55 93 130/64 05/20/16 18:50 78 122/68 05/20/16 18:46 75 96/49 05/20/16 18:45 80 05/20/16 18:40 72 103/64 05/20/16 18:35 79 110/57 05/20/16 18:31 168 96/71 05/20/16 18:30 76 05/20/16 18:26 77 104/63 05/20/16 18:25 78 05/20/16 18:21 105 117/92 05/20/16 18:20 82 05/20/16 18:17 74 106/61 2/12/17 18:15 77 05/20/16 18:11 73 119/60 05/20/16 18:10 79 05/20/16 18:07 86 122/68 05/20/16 18:05 90 05/20/16 18:01 88 131/62 05/20/16 18:00 90 05/20/16 17:56 159 150/82 05/20/16 17:55 92 05/20/16 17:50 91 05/20/16 17:45 83 05/20/16 17:40 83 05/20/16 17:35 87 05/20/16 17:30 81 05/20/16 17:25 78 05/20/16 17:20 77 Objective Remarks GENERAL: Well-nourished, well-developed patient. CARDIOVASCULAR: Regular rate and rhythm without murmurs, gallops, or rubs. RESPIRATORY: Breath sounds equal bilaterally. No accessory muscle use. ABDOMEN/GI: Abdomen soft, non-tender. Fundus: Firm, non-tender at umbilicus. GENITOURINARY: Light to moderate bleeding. EXTREMITIES: No cyanosis or edema, non-tender, without signs of DVT. Medications and IVs Current Medications Medications (Trade) Dose Ordered Sig/Peter Route Start Time Stop Time Status Last Admin Miscellaneous Information No systemic narcotics to be given except... UNSCH PRN XX 05/20/16 19:15 05/21/16 19:14 Miscellaneous Information DO NOT ADMINISTER ANY ANTICOAGUL... UNSCH PRN XX 05/20/16 19:15 05/21/16 19:14 (ePHEDrine/NS 50 MG/5 ML SYR) 10 mg UNSCH PRN IV 05/20/16 19:15 05/21/16 19:14 (NS Flush) 2 ml BID IV 05/20/16 21:00 (NS Flush) 2 ml UNSCH PRN IV 05/20/16 20:45 (Tylenol) 650 mg Q4H PRN PO 05/20/16 20:45 05/21/16 05:32 (Motrin) 600 mg Q6H PRN PO 05/20/16 20:45 05/21/16 04:21 (Americaine 20% Top Spr) 1 spray Q4H PRN TOPICAL 05/20/16 20:45 05/21/16 04:21 (Tucks Pads) 1 applic QID PRN TOPICAL 05/20/16 20:45 05/21/16 04:21 (Oralia-Colace) 2 tab Q12H PRN PO 05/20/16 20:45 (Ambien) 5 mg HS PRN PO 05/20/16 20:45 (Mag-Al Plus Susp Liq) 15 ml Q8H PRN PO 05/20/16 20:45 (Zofran Odt) 4 mg Q6H PRN PO 05/20/16 20:45 Assessment/Plan Problem List: (1) Single liveborn delivered vaginally (2) GBS carrier (3) Marijuana use Assessment and Plan Assessment and Plan 21 year-old female PP1 at 40/0 1. Single Delivery, 40 weeks gestation -Continue routine care -Motrin and Percocet PRN pain. Miralax for Bowel Reg. PRN benadryl and PRN zofran on board. -Encouraged OOB. Advised pelvic rest for 6 wks -Follow up OB appointment in 6 weeks with [facility] -Feeding baby by breast and formula. Emergency Room Registered Nurse will visit daily while inpatient -Pt requests OCP (Seasonique) for preferred control- not in formulary- f/ u with OBGYN in 1 week to obtain -Mom A+ blood type, no Rhogam indicated 2. GBS+ -Positive swab (04/16), negative culture (04/19) -Received 1 dose PNC ~3 hours prior to delivery 3. Marijuana use -Counseling provided, mother expresses understanding contraindication to 4. Diarrhea -Likely secondary to PNC -Encourage hydration, continue to monitor DW: Dr. Munroe, Dr Daniel Discharge Planning PPD1 today. Likely tomorrow, pending VSS and pain control. Sonja Lockwood MD R1 May 21, 2016 07:54
--- NOTE | 2016-05-21 08:14 | HHI.OB ---
Subjective Post Day: 1 Remarks This patient is day 1 and doing well after vaginal delivery yesterday. She is had the no complication bleeding is decreased uterus is firm her baby is doing well she was seen with the family medicine residents and agree with their evaluation and plan for probable discharge tomorrow Objective Vitals/I&O Vital Signs Date Time Temp Pulse Resp B/P Pulse Ox O2 Delivery O2 Flow Rate FiO2 05/20/16 21:01 92 135/75 05/20/16 20:57 18 05/20/16 20:46 84 132/72 05/20/16 20:15 96 137/77 05/20/16 19:59 18 05/20/16 19:55 89 05/20/16 19:50 77 05/20/16 19:45 86 05/20/16 19:45 115/72 05/20/16 19:40 100 05/20/16 19:35 89 05/20/16 19:31 80 102/52 05/20/16 19:30 80 18 05/20/16 19:25 84 05/20/16 19:21 79 85/65 05/20/16 19:20 86 05/20/16 19:15 78 106/63 05/20/16 19:10 79 101/52 05/20/16 19:06 78 108/64 05/20/16 19:05 80 05/20/16 19:01 91 111/74 05/20/16 19:00 98.7 05/20/16 19:00 82 05/20/16 18:59 18 05/20/16 18:55 93 130/64 05/20/16 18:50 78 122/68 05/20/16 18:46 75 96/49 05/20/16 18:45 80 05/20/16 18:40 72 103/64 05/20/16 18:35 79 110/57 05/20/16 18:31 168 96/71 05/20/16 18:30 76 05/20/16 18:26 77 104/63 05/20/16 18:25 78 05/20/16 18:21 105 117/92 05/20/16 18:20 82 05/20/16 18:17 74 106/61 05/20/16 18:15 77 05/20/16 18:11 73 119/60 05/20/16 18:10 79 05/20/16 18:07 86 122/68 05/20/16 18:05 90 05/20/16 18:01 88 131/62 05/20/16 18:00 90 05/20/16 17:56 159 150/82 05/20/16 17:55 92 05/20/16 17:50 91 05/20/16 17:45 83 05/20/16 17:40 83 05/20/16 17:35 87 05/20/16 17:30 81 05/20/16 17:25 78 05/20/16 17:20 77 Objective Remarks GENERAL: Well-nourished, well-developed patient. CARDIOVASCULAR: Regular rate and rhythm without murmurs, gallops, or rubs. RESPIRATORY: Breath sounds equal bilaterally. No accessory muscle use. ABDOMEN/GI: Abdomen soft, non-tender. Fundus: Firm, non-tender at umbilicus. GENITOURINARY: Light to moderate bleeding. EXTREMITIES: No cyanosis or edema, non-tender, without signs of DVT. Medications and IVs Current Medications Medications (Trade) Dose Ordered Sig/Peter Route Start Time Stop Time Status Last Admin Miscellaneous Information No systemic narcotics to be given except... UNSCH PRN XX 05/20/16 19:15 05/21/16 19:14 Miscellaneous Information DO NOT ADMINISTER ANY ANTICOAGUL... UNSCH PRN XX 05/20/16 19:15 05/21/16 19:14 (ePHEDrine/NS 50 MG/5 ML SYR) 10 mg UNSCH PRN IV 05/20/16 19:15 05/21/16 19:14 (NS Flush) 2 ml BID IV 05/20/16 21:00 (NS Flush) 2 ml UNSCH PRN IV 05/20/16 20:45 (Tylenol) 650 mg Q4H PRN PO 05/20/16 20:45 05/21/16 05:32 (Motrin) 600 mg Q6H PRN PO 05/20/16 20:45 05/21/16 04:21 (Americaine 20% Top Spr) 1 spray Q4H PRN TOPICAL 05/20/16 20:45 05/21/16 04:21 (Tucks Pads) 1 applic QID PRN TOPICAL 05/20/16 20:45 05/21/16 04:21 (Oralia-Colace) 2 tab Q12H PRN PO 05/20/16 20:45 (Ambien) 5 mg HS PRN PO 05/20/16 20:45 (Mag-Al Plus Susp Liq) 15 ml Q8H PRN PO 05/20/16 20:45 (Zofran Odt) 4 mg Q6H PRN PO 05/20/16 20:45 Assessment/Plan Problem List: (1) Single liveborn infant delivered vaginally (2) GBS carrier (3) Marijuana use Assessment and Plan Assessment and Plan 21 year-old female PP1 at 40/0 1. Single Delivery, 40 weeks gestation -Continue routine care -Motrin and Percocet PRN pain. Miralax for Bowel Reg. PRN benadryl and PRN zofran on board. -Encouraged OOB. Advised pelvic rest for 6 wks -Follow up OB appointment in 6 weeks with [facility] -Feeding baby by breast and formula. Nursing Unit Coordinator will visit daily while inpatient -Pt requests OCP (Seasonique) for preferred control- not in formulary- f/ u with OBGYN in 1 week to obtain -Mom A+ blood type, no Rhogam indicated 2. GBS+ -Positive swab (04/16), negative culture (04/19) -Received 1 dose PNC ~3 hours prior to delivery 3. Marijuana use -Counseling provided, mother expresses understanding contraindication to 4. Diarrhea -Likely secondary to PNC -Encourage hydration, continue to monitor DW: Dr. Munroe, Dr Daniel Discharge Planning PPD1 today. Likely tomorrow, pending VSS and pain control. Rakesh Daniel II, MD May 21, 2016 08:14
[2016-05-21] MEDS: SODIUM CHLORIDE 0.9% FLUSH 5 ML FLUSH IV SCH (21:00)
--- NOTE | 2016-05-22 07:27 | HHI.OB ---
Subjective Post Day: 2 Remarks PPD2. Pain well-controlled. Eating, voiding, stooling, ambulating without difficulty. Encouraged OOB. Intends to formula feed (UDS+ cannabinoids). Would like OCP (Seasonique) for contraception- has used in past with good results. Will follow up with [facility] for 6 week follow up and to obtain. Denies fevers/chills, SOB/chest pain, calf pain. (Sonja Lockwood MD R1 ) Objective [facility] Objective Remarks GENERAL: Well-nourished, well-developed patient. CARDIOVASCULAR: Regular rate and rhythm without murmurs, gallops, or rubs. RESPIRATORY: Inspiratory wheezing in bases bilaterally. ABDOMEN/GI: Abdomen soft, non-tender. Fundus: Firm, non-tender at umbilicus. GENITOURINARY: Light to moderate bleeding. EXTREMITIES: No cyanosis or edema, non-tender, without signs of DVT. Medications and IVs Current Medications Medications (Trade) Dose Ordered Sig/Peter Route Start Time Stop Time Status Last Admin (NS Flush) 2 ml BID IV 05/20/16 21:00 (NS Flush) 2 ml UNSCH PRN IV 05/20/16 20:45 (Tylenol) 650 mg Q4H PRN PO 05/20/16 20:45 05/21/16 05:32 (Motrin) 600 mg Q6H PRN PO 05/20/16 20:45 05/21/16 10:13 (Americaine 20% Top Spr) 1 spray Q4H PRN TOPICAL 05/20/16 20:45 05/21/16 04:21 (Tucks Pads) 1 applic QID PRN TOPICAL 05/20/16 20:45 05/21/16 04:21 (Oralia-Colace) 2 tab Q12H PRN PO 05/20/16 20:45 (Ambien) 5 mg HS PRN PO 05/20/16 20:45 (Mag-Al Plus Susp Liq) 15 ml Q8H PRN PO 05/20/16 20:45 (Zofran Odt) 4 mg Q6H PRN PO 05/20/16 20:45 (Sonja Lockwood MD R1) Assessment/Plan Problem List: (1) Single liveborn infant delivered vaginally (2) GBS carrier (3) Marijuana use (4) Asthma (5) Tobacco use during Assessment and Plan 21 year-old female PP2 at 40/0 1. Single Delivery, 40 weeks gestation -Continue routine care -Motrin and Percocet PRN pain. Miralax for Bowel Reg. PRN Benadryl and PRN Zofran on board. -Encouraged OOB. Advised pelvic rest for 6 wks -Follow up OB appointment in 6 weeks with [facility] -Feeding baby by formula only (UDS +marijuana) -Pt requests OCP (Seasonique) for preferred control- not in formulary- f/ u with OBGYN in 6 week to obtain -Mom A+ blood type, no Rhogam indicated 2. GBS Carrier -Positive swab (04/16), negative culture (04/19) -Received 1 dose PNC ~3 hours prior to delivery 3. Marijuana use -Counseling provided, mother expresses understanding contraindication to 4. Asthma -Inspiratory wheezing on physical exam -Hx of tobacco and marijuana smoking- will give albuterol tx x1 -Pt states has inhaler at home, denies need for new prescription to be written 5. Tobacco use during -Smoking cessation counseling provided -Goal as outpatient to decrease from 10 cig/day to 5 cig/day 6. Diarrhea -Resolved, likely secondary to PNC dose DW: Dr. Munroe, Dr Martínez Discharge Planning PPD2 today. Today, pending pediatrics rounding on infant (Sonja Lockwood MD R1) Attestation Discussed care with Dr Lockwood and agree with discharge plans (Uzma Martínez MD) Sonja Lockwood MD R1 May 22, 2016 07:27 Uzma Martínez MD May 22, 2016 09:18
[2016-05-22] MEDS ORDERED: VENTAER INH (08:15)
[2016-05-22] MEDS ORDERED: IBUP-232 PO (08:18)
--- NOTE | 2016-05-22 08:19 | HHI.DCPOC ---
Discharge Care Plan Diagnosis: (1) Single liveborn delivered vaginally (2) GBS carrier (3) Tobacco use during (4) Marijuana use Report Symptoms to Your Doctor -Temperate above 100.5 degrees -Redness, of incision or excessive or foul smelling drainage -Unusual pain or calf pain -Increased vaginal bleeding -Painful or difficulty urinating -Feelings of extreme sadness or anxiety after 2 weeks Goals to Promote Your Health * To prevent worsening of your condition and complications * To maintain your health at the optimal level Directions to Meet Your Goals Take your medications as prescribed Follow your dietary instruction Follow activity as directed Ensure plenty of rest for recovery Drink fluids for hydration Keep your appointments as scheduled Take your immunizations and boosters as scheduled If your symptoms worsen call your PCP, if no PCP go to Urgent Care Center or Emergency Room Smoking is Dangerous to Your Health. Avoid second hand smoke Call the 24-hour crisis hotline for domestic abuse at Sonja Lockwood MD R1 May 22, 2016 08:19
[2016-05-22 08:42] VITALS: BP 100/60; PULSE 67; RESP 18; TEMP 98.1
[2016-05-22] MEDS ORDERED: ALBUTEROL SULFATE 90 MCG/ACT HFA 8 GM INHALER INH SCH (09:00)
[2016-05-24 08:12] LABS: BATH SALTS (MDPV) UR NEG (NEG); ECSTASY (MDMA) UR NEG (NEG); HEROIN (6-ACETYLMORPHINE) UR NEG (NEG); K2 SPICE UR NEG (NEG); OBMETHADONE UR NEG (NEG); OXYCODONE (PERCODAN) NEG (NEG); PHENCYCLIDINE URINE NEG (NEG)
[2016-05-28] MEDS ORDERED: DIFL150T PO (13:54)
[2016-05-28] MEDS ORDERED: NORE0.354 PO (13:54)
[2016-07-10] MEDS ORDERED: MACR100C2 PO (16:34)
== END 2016-05-22 18:45 | disposition home or self-care (01) | DRG 775 ==
LOC: HOBED 16:55 → H2EB 17:06 → H1EA 22:37
PROVIDERS: ADMIT Obstetrics & Gynecology Maternal & Fetal Medicine; ATTEND Obstetrics & Gynecology Maternal & Fetal Medicine
PROC: 10E0XZZ Delivery of Products of Conception, External Approach (ICD-10-PCS; principal; 2016-05-20)
PROC: 00HU33Z Insertion of Infusion Device into Spinal Canal, Percutaneous Approach (ICD-10-PCS; 2016-05-20)
PROC: 3E0R3CZ (ICD-10-PCS; 2016-05-20)
DX: O99.824 Streptococcus B carrier state complicating childbirth (principal); F17.210 Nicotine dependence, cigarettes, uncomplicated; O99.334 Smoking (tobacco) complicating childbirth; O99.324 Drug use complicating childbirth; F12.90 Cannabis use, unspecified, uncomplicated; O69.81X0 Labor and delivery complicated by cord around neck, without compression, not applicable or unspecified; O99.52 Diseases of the respiratory system complicating childbirth; J45.909 Unspecified asthma, uncomplicated; O26.893 Other specified pregnancy related conditions, third trimester; R19.7 Diarrhea, unspecified; Z3A.40 40 weeks gestation of pregnancy; Z37.0 Single live birth
CPT/HCPCS: 80307; 81001; 85025; 99285; G0481; J2540; J3010; J7120

== ENCOUNTER 2016-09-07 21:29 | Emergency (ER) | payer OTHER ==
[~2016-09-07] VITALS: Ht 172.7 cm; Wt 65.0 kg
[~2016-09-07 21:29] MED LIST changes: +DIFL150T PO; -DIPHTH/TETANUS/ACEL PERTUSSIS (BOOSTER) 0.5 ML VIAL/PFS IM ONE; +IBUP-232 PO; +MACR100C2 PO; -MEASLES, MUMPS, RUBELLA VACCINE 0.5 ML VIAL SQ ONE; +NORE0.354 PO; -PROM25TA5 PO; -PROT40TA PO
[2016-09-07 21:31] VITALS: BP 121/63; PULSE 89; RESP 18; TEMP 100.9; O2SAT 97
[2016-09-07] MEDS ORDERED: ACETAMINOPHEN 650 MG/20.3 ML UDC PO ONE (22:45)
--- NOTE | 2016-09-07 22:50 | PD ---
HPI Chief Complaint: ENT Complaint Time Seen by Provider: 22:36 Travel History International Travel<30 days: No Contact w/Intl Traveler<30days: No Traveled to known affect area: No History of Present Illness HPI 21yo F with PMH of asthma presents to the ED with c/o throat pain, nasal congestion and occasional cough for 2 days. +Fever today. +Generalized bodyaches. States it hurts to eat or drink. Denies any chest pain, sob, n/v, abdominal pain, focal weakness or numbness. Denies any rash. Up to date on vaccination. PFSH Past Medical History ADHD: No Asthma: Yes Weight (Kg): UNKNOWN Cancer: No Cardiovascular Problems: Yes (BUNDLE BRANCH BLOCK) Developmental Delay: No Diabetes: No Diminished Hearing: No Headaches: Yes (OCCASIONAL HEADACHES) Kidney Stones: Yes Psychiatric: Yes Immunizations Current: Yes Migraines: Yes (sometimes) Seizures: Yes (SEIZURES DURING DRUG OVERDOSE LAST YEAR) Thyroid Disease: No Ulcer: No ?: Not LMP: 08/25 : 1 Past Surgical History Surgical History: No Previous Surgery Appendectomy: No Cholecystectomy: No Other Surgery: No Social History Alcohol Use: No Tobacco Use: Yes (04/09 PPD) Substance Use: Yes (marijuana) Allergies-Medications (Allergen,Severity, Reaction): Coded Allergies: No Known Allergies (Verified , 05/28/16) Reported Meds & Prescriptions Reported Meds & Active Scripts Active No Active Prescriptions or Reported Medications Review of Systems Except as stated in HPI: all other systems reviewed are Neg Physical Exam Narrative GENERAL: 21yo F in mild distress. SKIN: Focused skin assessment warm/dry. HEAD: Atraumatic. Normocephalic. EYES: Pupils equal and round. No scleral icterus. No injection or drainage. ENT: Throat: +Bilateral tonsillar exudate. Uvula midline. Tonsils not swollen. NECK: +Bilateral anterior cervical lymphadenopathy ttp. No nuchal rigidity. CARDIOVASCULAR: Regular rate and rhythm. No murmur appreciated. RESPIRATORY: No accessory muscle use. Clear to auscultation. Breath sounds equal bilaterally. GASTROINTESTINAL: Abdomen soft, non-tender, nondistended. No rebound tenderness or guarding. MUSCULOSKELETAL: No obvious deformities. No clubbing. No cyanosis. No edema. NEUROLOGICAL: Awake and alert. No obvious cranial nerve deficits. Motor grossly within normal limits. Normal speech. PSYCHIATRIC: Appropriate mood and affect; insight and judgment normal. Data Data Last Documented VS Vital Signs Date Time Temp Pulse Resp B/P Pulse Ox O2 Delivery O2 Flow Rate FiO2 09/07/16 21:31 100.9 89 18 121/63 97 Room Air Orders Acetaminophen 650 Mg/20 Ml Liq (Tylenol (09/07/16 22:45) Group A Rapid Strep Screen (09/07/16 22:44) Influenzae A/B Antigen (09/07/16 22:44) MDM Medical Decision Making Medical Screen Exam Complete: Yes Emergency Medical Condition: Yes Differential Diagnosis Strep pharyngitis vs. influenza vs. URI vs. Bronchitis Narrative Course 21yo F with throat pain, fever, and nasal congestion. Temperature is 100.9F here and she last took acetaminophen at 10am today. Rest of vital sign unremarkable. Pt is saturating at 97% on RA and speaking in complete sentences. Pt is well appearing and not in tripod position. Will give acetaminophen and check influenza and group A strep. Throat culture is positive for group A strep. Pt prefers penicillin V K instead of the Bicillin so given first dose of penicillin V K here. Influenza negative. Pt reevaluated at bedside and feels better after acetaminophen. Return precautions given. Pt tolerating PO. Diagnosis Primary Impression: Strep pharyngitis Patient Instructions: General Instructions Departure Forms: Tests/Procedures Additional Instructions: Please follow up with your PMD in 3-7 days. Return to the ED if symptoms worsen. Med/Other Pt SpecificInfo: Prescription(s) given Scripts Acetaminophen (Tylenol)325 Mg [id number] Mg PO Q6H PRN (FEVER) #20 TAB Ref 0 Prov:Ct Avitia DO 09/07/16 Penicillin V Potassium 500 Mg [id number] Mg PO BID 10 Days Ref 0 Prov:Ct Avitia DO 09/07/16 Disposition: 01 DISCHARGE HOME Condition: Stable Ct Avitia DO Sep 07, 2016 22:50
[2016-09-07] MEDS ORDERED: PENI500T PO (23:52)
[2016-09-07] MEDS ORDERED: TYLE325T PO (23:52)
[2016-09-08] MEDS ORDERED: PENICILLIN V POTASSIUM 500 MG TAB PO ONE
== END 2016-09-08 00:24 | disposition home or self-care (01) ==
LOC: NEPD 21:29
DX: J02.0 Streptococcal pharyngitis (principal); B95.0 Streptococcus, group A, as the cause of diseases classified elsewhere; F17.200 Nicotine dependence, unspecified, uncomplicated
CPT/HCPCS: 87804; 87880; 99283

== ENCOUNTER 2017-08-19 14:34 | Emergency (ER) | payer OTHER ==
[~2017-08-19 14:34] MED LIST changes: -DIFL150T PO; -IBUP-232 PO; -MACR100C2 PO; -NORE0.354 PO; +PENI500T PO; -PREN1PAK2 PO; +TYLE325T PO
--- NOTE | 2017-08-19 14:55 | PD ---
HPI Chief Complaint Contractions Date Seen: August 19, 2017 Travel History International Travel<30 Days: No Contact w/Intl Traveler<30Days: No Known Affected Area: No History of Present Illness HPI The patient is a 22 year old at 37/0 weeks gestation presents to OB triage due to contractions. She states the contractions began earlier today and reports they have become more intense. Denies any leakage or gush of fluid. Endorses + movements. She denies any fevers, chest pain, dyspnea, headaches, visual changes, dysuria. She states her has been uncomplicated thus far. Para: 1 : 2 History Past Medical History Narrative Medical Reportedly healthy Obstetric History Obstetric History Reports one prior term vaginal delivery, reports uncomplicated course and delivery Past Surgical History Surgical History: No Previous Surgery Family History Family History: Negative Social History Alcohol Use: No Tobacco Use: Yes (Admits to smoking about 8 cigarettes daily throughout the ) Substance Abuse: No Allergies-Medications (Allergen,Severity, Reaction): Coded Allergies: No Known Allergies (Verified Allergy, Unknown, 08/19/17) Home Meds Active Scripts Acetaminophen (Tylenol) 325 Mg Tab, 650 MG PO Q6H Y for FEVER, #20 TAB 0 Refills Prov:Ct Avitia DO 09/07/16 Penicillin V Potassium (Penicillin V Potassium) 500 Mg Tab, 500 MG PO BID for Infection for 10 Days, TAB 0 Refills Prov:Ct Avitia DO 09/07/16 Review of Systems Except as stated in HPI: all other systems reviewed are Neg Physical Exam Narrative GENERAL: Well-nourished, well-developed patient. SKIN: Warm and dry. HEAD: Normocephalic and atraumatic. EYES: No scleral icterus. No injection or drainage. ENT: No nasal drainage noted. Mucous membranes pink. Airway patent. NECK: Supple, trachea midline. No JVD. CARDIOVASCULAR: Regular rate and rhythm without murmurs, gallops, or rubs. RESPIRATORY: Breath sounds equal bilaterally. No accessory muscle use. ABDOMEN/GI: Abdomen soft, non-tender, bowel sounds present, no rebound, no guarding Gravid to 37 weeks size GENITOURINARY (performed by Dr. Daniel with female shellfish processing laborer present in the room) : External Genitalia: intact and normal in appearance Cervix: posterior Dilatation: 4cm Effacement: 60% Station: -3 Presentation: vertex Membranes: intact Uterine Contractions: Irregular FHT's: Category: I Baseline: 100s Reactive: +accels Variability: moderate Decels: none noted EXTREMITIES: No cyanosis or edema. BACK: Nontender without obvious deformity. No CVA tenderness. NEUROLOGICAL: Awake and alert. Motor and sensory grossly within normal limits. Normal speech. Data Data Vital Signs Reviewed: Yes MDM Medical Record Reviewed: Yes Plan 22 year old at 37/0 weeks gestation evaluated due to painful contractions. 1. IUP - Cervix: 460/-3, cervix was re-examined after 2 hours and noted to be unchanged - Irregular contractions on tocometer - Patient given 2L LR boluses as well as fentanyl 50 mg IV x1 due to pain from contractions - Category I tracing, baseline FHR monitored and noted to be in the 100s however there is moderate variability with + accels, FHR continued to be monitored with improvement of baseline to 120sbpm - Labor precautions reviewed with the patient and discussed si/sxs that would warrant a return visit to the ED for reevaluation - Recommended bedrest at home - Encouraged continued routine follow up with her OB provider fany Daniel Diagnosis Diagnosis: Primary Impression: 37 weeks gestation of Disposition: DISCHARGE HOME Condition: Stable Patient Instructions: General Instructions, Early Labor Signs (ED) Piotr Garcia MD R2 August 19, 2017 14:55
[2017-08-19] MEDS ORDERED: LACTATED RINGER'S 1000 ML INJ 1,000 ML IV ONE ×2 (15:15→16:00)
== END 2017-08-19 16:47 | disposition home or self-care (01) ==
LOC: HOBED 14:34
DX: O47.1 False labor at or after 37 completed weeks of gestation (principal); O99.333 Smoking (tobacco) complicating pregnancy, third trimester; F17.210 Nicotine dependence, cigarettes, uncomplicated; Z3A.37 37 weeks gestation of pregnancy
CPT/HCPCS: 59025; 96361; 96374; 99284; J3010; J7120

== ENCOUNTER 2017-09-11 12:57 | Inpatient (IN) | payer OTHER ==
[2017-09-11] MEDS ORDERED: LACTATED RINGER'S 1000 ML INJ 1,000 ML IV PRN (13:17)
--- NOTE | 2017-09-11 13:28 | PD ---
HPI Chief Complaint Contractions Date Seen: Sep 11, 2017 Travel History International Travel<30 Days: No Contact w/Intl Traveler<30Days: No Known Affected Area: No History of Present Illness HPI Patient is a 22-year-old at 40/2 weeks gestation presents to the [facility] ED with a chief complaint of contractions that began around 12:15 PM today. Patient denies vaginal bleeding, loss of fluid, and endorses positive movements. She gets her care at [facility]. Notably, she has not been to clinic since July, and has not had labs done. She had a prior full-term vaginal delivery 16 months ago. She is having a girl this time. Weeks Gestation: 40 Para: 1 : 2 History Past Medical History Narrative Medical Asthma -infrequent inhaler use Obstetric History Obstetric History Full-term vaginal delivery 16 months ago, 7 lbs. 2 oz. Past Surgical History Surgical History: No Previous Surgery Family History Narrative Family History Mom has asthma No family history of hypertension or diabetes known to patient Social History Narrative Social History Lives at home with fianc and son. Alcohol Use: No Tobacco Use: Yes (7 cigarettes per day, positive marijuana use) Allergies-Medications (Allergen,Severity, Reaction): Coded Allergies: No Known Allergies (Verified Allergy, Unknown, 08/19/17) Home Meds Active Scripts Acetaminophen (Tylenol) 325 Mg Tab, 650 MG PO Q6H Y for FEVER, #20 TAB 0 Refills Prov:Ct Avitia DO 09/07/16 Penicillin V Potassium (Penicillin V Potassium) 500 Mg Tab, 500 MG PO BID for Infection for 10 Days, TAB 0 Refills Prov:Ct Avitia DO 09/07/16 Review of Systems Except as stated in HPI: all other systems reviewed are Neg Physical Exam Narrative GENERAL: Well-nourished, well-developed patient. SKIN: Warm and dry. HEAD: Normocephalic and atraumatic. EYES: No scleral icterus. No injection or drainage. ENT: No nasal drainage noted. Mucous membranes pink. Airway patent. NECK: Supple, trachea midline. No JVD. CARDIOVASCULAR: Regular rate and rhythm without murmurs, gallops, or rubs. RESPIRATORY: Breath sounds equal bilaterally. No accessory muscle use. ABDOMEN/GI: Abdomen soft, non-tender, bowel sounds present, no rebound, no guarding Gravid to 40 weeks size GENITOURINARY: External Genitalia: intact and normal in appearance Cervix: Posterior Dilatation: 5cm Effacement: 80 Station: -1 Presentation: Cephalic, confirmed on bedside ultras Membranes: Intact with bulging bag Uterine Contractions: Present, every 1-2 minutes FHT's: Category: I Baseline: 120 Reactive: Yes Variability: Moderate Decels: None EXTREMITIES: No cyanosis or edema. BACK: Nontender without obvious deformity. No CVA tenderness. NEUROLOGICAL: Awake and alert. Motor and sensory grossly within normal limits. Five out of 5 muscle strength in all muscle groups. Normal speech. Data Data Orders Orders Ob (2e) Additional Admit Info (09/11/17 13:08) Admit To Inpatient (09/11/17 ) Vital Signs (Adult) .Per protocol (09/11/17 13:17) Activity Oob Ad Jenna (09/11/17 13:17) Heart (09/11/17 13:17) Amnioinfusion (09/11/17 13:17) Urinary Catheter Management .ONCE (09/11/17 13:17) Diet Liquid (09/11/17 Lunch) Lactated Ringer's 1000 Ml Inj (Lr 1000 M (09/11/17 13:17) Lactated Ringer's 1000 Ml Inj (Lr 1000 M (09/11/17 13:17) Sodium Chlorid 0.9% 500 Ml Inj (Ns 500 M (09/11/17 13:30) Sodium Chlor 0.9% 1000 Ml Inj (Ns 1000 M (09/11/17 13:37) Lidocaine 1% Inj (50 Ml) (Xylocaine 1% I (09/11/17 13:30) Citric Acid-Sodium Citrate Liq (Bicitra (09/11/17 13:30) Fentanyl Inj (Fentanyl Inj) (09/11/17 13:30) Fentanyl Inj (Fentanyl Inj) (09/11/17 13:30) Penicillin G Potassium Inj (Pfizerpen-G (09/11/17 13:30) Penicillin G Potassium Inj (Pfizerpen-G (09/11/17 17:30) Complete Blood Count With Diff (09/11/17 13:17) Hold Clot (09/11/17 13:17) Abo/Rh Blood Type (09/11/17 13:17) Urinalysis - C+S If Indicated (09/11/17 13:17) Drug Screen, Random Urine (09/11/17 13:17) Ob/Psych Drug Screen, Urine (09/11/17 13:17) Rapid Plasma Regin (Rpr) W Ttr (09/11/17 13:17) Hepatitis Profile (09/11/17 13:17) No Care Spec Serology (09/11/17 13:17) Resp Oxygen Non Rebreathe Mask (09/11/17 ) ^ Epidural / Intrathecal Infus (09/11/17 13:17) Oxytocin 30 Units-500ml Premix (Pitocin (09/11/17 13:30) Lidocaine 1% Inj (50 Ml) (Xylocaine 1% I (09/11/17 13:30) Light Mineral Oil (Muri-Lube Oil) (09/11/17 13:30) Inpatient Certification (09/11/17 ) Specimen To Be Collected PRN (09/11/17 13:17) Specimen To Be Collected PRN (09/11/17 13:17) MDM Medical Record Reviewed: Yes Interpretation(s) 22-year-old presents in active labor Plan IUP, vidal, GBS unknown - heart tones reassuring -Admit to L&D for routine antepartum care -Patient desires an epidural -Check labs and rapid GBS -Start penicillin prophylaxis for GBS -Expect vaginal delivery soon Discussed with Luci Escobar MD R2 Sep 11, 2017 13:28
[2017-09-11] MEDS ORDERED: OXYTOCIN 30 UNITS-500ML PREMIX 500 ML IV ONE (13:30)
[2017-09-11] MEDS ORDERED: MINERAL OIL 10 ML VIAL TOPICAL PRN (13:30)
[2017-09-11] MEDS ORDERED: LIDOCAINE HCL 1% 50 ML VIAL INFIL PRN (13:30)
[2017-09-11] MEDS ORDERED: CITRIC ACID-SODIUM CITRATE LIQ 30 ML UDC PO SCH (13:30)
[2017-09-11] MEDS ORDERED: PENICILLIN G POTASSIUM INJ 5,000,000 UNITS in SODIUM CHLORIDE 0.9% INJ 100 ML IV ONE (13:30)
[2017-09-11] MEDS ORDERED: LIDOCAINE HCL 1% 50 ML VIAL I-DERMAL PRN (13:30)
[2017-09-11] MEDS ORDERED: SODIUM CHLORID 0.9% 500 ML INJ 500 ML IV PRN (13:30)
[2017-09-11] MEDS ORDERED: SODIUM CHLOR 0.9% 1000 ML INJ 1,000 ML IV PRN (13:37)
[2017-09-11 13:53] LABS: BACTERIA, URINE RARE /hpf; BILIRUBIN, URINE NEG (NEG); BLOOD, URINE NEG (NEG); GLUCOSE,URINE NEG (NEG); KETONE, URINE NEG (NEG); MUCUS URINE FEW /lpf (OCC); NITRITE,URINE NEG (NEG); PH, URINE 7.5 (5.0-8.5); SQUAMOUS EPITHELIAL CELL URINE 1 /hpf (0-5); URINE COLOR YELLOW (YELLW/STRAW); URINE LEUKOCYTE ESTERASE LARGE (NEG)
[2017-09-11 13:54] LABS: AUTOMATED NEUTROPHIL # 6.4 TH/MM3 (1.8-7.7); BASOPHIL % 0.4 % (0.0-2.0); EOSINOPHIL # 0.1 TH/MM3 (0-0.4); EOSINOPHIL % 0.6 % (0.0-4.0); HEMATOCRIT 37.3 % (35.0-46.0); HEMOGLOBIN 12.6 GM/DL (11.6-15.3); LYMPH % 25.2 % (9.0-44.0); LYMPHOCYTE # 2.4 TH/MM3 (1.0-4.8); MEAN CORPUSCULAR HEMOGLOBIN 29.3 PG (27.0-34.0); MEAN CORPUSCULAR HGB CONC 33.7 % (32.0-36.0); MEAN PLATELET VOLUME 8.8 FL (7.0-11.0); MONO % 6.9 % (0.0-8.0); MONOCYTE # 0.7 TH/MM3 (0-0.9); NEUT % 66.9 % (16.0-70.0); PLATELET COUNT 221 TH/MM3 (150-450); RED BLOOD COUNT 4.29 MIL/MM3 (4.00-5.30); RED CELL DISTRIBUTION WIDTH 14.1 % (11.6-17.2); WHITE BLOOD COUNT 9.5 TH/MM3 (4.0-11.0)
--- NOTE | 2017-09-11 14:00 | HHI.HP ---
History & Physical H&P HPI Chief Complaint Contractions Date Seen: Sep 11, 2017 Travel History International Travel<30 Days: No Contact w/Intl Traveler<30Days: No Known Affected Area: No History of Present Illness HPI Patient is a 22-year-old at 40/2 weeks gestation presents to the [facility] ED with a chief complaint of contractions that began around 12:15 PM today. Patient denies vaginal bleeding, loss of fluid, and endorses positive movements. She gets her care at [facility]. Notably, she has not been to clinic since July, and has not had labs done. She had a prior full-term vaginal delivery 16 months ago. She is having a girl this time. Weeks Gestation: 40 Para: 1 : 2 History (Limited) History Past Medical History Narrative Medical Asthma -infrequent inhaler use Obstetric History Obstetric History Full-term vaginal delivery 16 months ago, 7 lbs. 2 oz. Past Surgical History Surgical History: No Previous Surgery Family History Narrative Family History Mom has asthma No family history of hypertension or diabetes known to patient Social History Narrative Social History Lives at home with fianc and son. Alcohol Use: No Tobacco Use: Yes (7 cigarettes per day, positive marijuana use) Allergies-Medications Allergies-Medications (Allergen,Severity, Reaction): Coded Allergies: No Known Allergies (Verified Allergy, Unknown, 08/19/17) Home Meds Active Scripts Acetaminophen (Tylenol) 325 Mg Tab, 650 MG PO Q6H Y for FEVER, #20 TAB 0 Refills Prov:AvitiaCt DO 09/07/16 Penicillin V Potassium (Penicillin V Potassium) 500 Mg Tab, 500 MG PO BID for Infection for 10 Days, TAB 0 Refills Prov:Ct Avitia DO 09/07/16 ROS Review of Systems Except as stated in HPI: all other systems reviewed are Neg Physical Exam Physical Exam Narrative GENERAL: Well-nourished, well-developed patient. SKIN: Warm and dry. HEAD: Normocephalic and atraumatic. EYES: No scleral icterus. No injection or drainage. ENT: No nasal drainage noted. Mucous membranes pink. Airway patent. NECK: Supple, trachea midline. No JVD. CARDIOVASCULAR: Regular rate and rhythm without murmurs, gallops, or rubs. RESPIRATORY: Breath sounds equal bilaterally. No accessory muscle use. ABDOMEN/GI: Abdomen soft, non-tender, bowel sounds present, no rebound, no guarding Gravid to 40 weeks size GENITOURINARY: External Genitalia: intact and normal in appearance Cervix: Posterior Dilatation: 5cm Effacement: 80 Station: -1 Presentation: Cephalic, confirmed on bedside ultras Membranes: Intact with bulging bag Uterine Contractions: Present, every 1-2 minutes FHT's: Category: I Baseline: 120 Reactive: Yes Variability: Moderate Decels: None EXTREMITIES: No cyanosis or edema. BACK: Nontender without obvious deformity. No CVA tenderness. NEUROLOGICAL: Awake and alert. Motor and sensory grossly within normal limits. Five out of 5 muscle strength in all muscle groups. Normal speech. Data Data Data Orders Orders Ob (2e) Additional Admit Info (09/11/17 13:08) Admit To Inpatient (09/11/17 ) Vital Signs (Adult) .Per protocol (09/11/17 13:17) Activity Oob Ad Jenna (09/11/17 13:17) Heart (09/11/17 13:17) Amnioinfusion (09/11/17 13:17) Urinary Catheter Management .ONCE (09/11/17 13:17) Diet Liquid (09/11/17 Lunch) Lactated Ringer's 1000 Ml Inj (Lr 1000 M (09/11/17 13:17) Lactated Ringer's 1000 Ml Inj (Lr 1000 M (09/11/17 13:17) Sodium Chlorid 0.9% 500 Ml Inj (Ns 500 M (09/11/17 13:30) Sodium Chlor 0.9% 1000 Ml Inj (Ns 1000 M (09/11/17 13:37) Lidocaine 1% Inj (50 Ml) (Xylocaine 1% I (09/11/17 13:30) Citric Acid-Sodium Citrate Liq (Bicitra (09/11/17 13:30) Fentanyl Inj (Fentanyl Inj) (09/11/17 13:30) Fentanyl Inj (Fentanyl Inj) (09/11/17 13:30) Penicillin G Potassium Inj (Pfizerpen-G (09/11/17 13:30) Penicillin G Potassium Inj (Pfizerpen-G (09/11/17 17:30) Complete Blood Count With Diff (09/11/17 13:17) Hold Clot (09/11/17 13:17) Abo/Rh Blood Type (09/11/17 13:17) Urinalysis - C+S If Indicated (09/11/17 13:17) Drug Screen, Random Urine (09/11/17 13:17) Ob/Psych Drug Screen, Urine (09/11/17 13:17) Rapid Plasma Regin (Rpr) W Ttr (09/11/17 13:17) Hepatitis Profile (09/11/17 13:17) No Care Spec Serology (09/11/17 13:17) Resp Oxygen Non Rebreathe Mask (09/11/17 ) ^ Epidural / Intrathecal Infus (09/11/17 13:17) Oxytocin 30 Units-500ml Premix (Pitocin (09/11/17 13:30) Lidocaine 1% Inj (50 Ml) (Xylocaine 1% I (09/11/17 13:30) Light Mineral Oil (Muri-Lube Oil) (09/11/17 13:30) Inpatient Certification (09/11/17 ) Specimen To Be Collected PRN (09/11/17 13:17) Specimen To Be Collected PRN (09/11/17 13:17) MDM MDM Medical Record Reviewed: Yes Interpretation(s) 22-year-old presents in active labor Plan IUP, vidal, GBS unknown - heart tones reassuring -Admit to L&D for routine antepartum care -Patient desires an epidural -Check labs and rapid GBS -Start penicillin prophylaxis for GBS -Expect vaginal delivery soon Discussed with Luci Escobar MD R2 Sep 11, 2017 14:00
[2017-09-11] MEDS ORDERED: ePHEDrine/NS 25 MG/5 ML SYRINGE ONE (14:12)
[2017-09-11] MEDS ORDERED: fentaNYL 2MCG-BUPIV 0.125% INJ 150 ML EPIDURAL ONE (14:12)
[2017-09-11] MEDS ORDERED: LIDOCAINE 1.5%/EPINEPHrine 1:200,000 PF 5 ML AMP ONE (14:18)
[2017-09-11] MEDS: LACTATED RINGER'S 1000 ML INJ 1,000 ML IV SCH (14:43)
--- NOTE | 2017-09-11 14:57 | HHI.PR ---
Subjective Remarks OBHG The patient is a 2 para 1001 with IUP at 40.2. She presents in active labor. Bedside ultrasound was performed as her last ultrasound indicated the fetus was in the transverse position. Vaginal examination the fetus palpates cephalic which was confirmed by ultrasound evaluation. I discussed with the patient the risks, benefits, and alternatives to a vaginal delivery. We discussed that our goal is a healthy and mother with a vaginal delivery. We discussed that a would be performed only if indicated and we do not expect this to be required. We discussed briefly the indications for delivery. heart tones are reassuring with a category 1 heart rate tracing and reactive NST. Will manage expectantly at this time. Objective Result Diagram: 09/11/17 1313 Radha Alonzo MD Sep 11, 2017 14:57
--- NOTE | 2017-09-11 16:25 | PD.LABORPN ---
Subjective Subjective Patient is doing well, epidural in place, comfortable Objective Objective Pelvic Exam: Cervix: Midposition Dilatation: 8cm Effacement: 100% Station: 0 Presentation: Cephalic Membranes: Ruptured, AROM Uterine Contractions: present, irregular FHT's: Category: I Baseline: 120 Reactive: multiple accels Variability: moderate Decels: none Weeks Gestation: 40 Assessment/Plan Assessment and Plan 22-year-old presents in active labor, making progress IUP, vidal, GBS unknown - heart tones reassuring -Epidural in place -AROM clear fluid -HIV and hepatitis profile negative -Rapid GBS and RPR pending -Expect vaginal delivery soon Discussed with Luci Escobar MD R2 Sep 11, 2017 16:25
--- NOTE | 2017-09-11 17:57 | PD.OB.DELI ---
Weeks gestation: 40 Pt started active labor?: Yes Medical induction of labor?: No Artificial rupture of membrane: Yes Anesthesia: Epidural Episiotomy: None Vaginal Delivery: Normal Presentation: Occiput anterior Nuchal Cord: None Delayed cord clamping (45 sec): Yes Infant: Female Delivery date: Sep 11, 2017 Delivery time: 17:46 One Minute : 9 Five Minute : 9 Placenta: Spontaneous delivery Laceration: No lacerations Estimated blood loss: 200 Additional Information See separate note Radha Alonzo MD Sep 11, 2017 17:57
--- NOTE | 2017-09-11 17:58 | HHI.PR ---
Subjective Remarks OBHG The patient is a 2 para 1001 with IUP at 40.2 who presented in active labor. The patient progressed to complete/complete/+1 station and commence spontaneous maternal expulsive efforts with reassuring heart tones throughout. The head was delivered over an intact perineum and the placed on the maternal abdomen. The was vigorous at delivery. The cord was doubly clamped and cut after 45 second delay. Cord blood was obtained for the nursery and placenta delivered spontaneously. The placenta appeared to be intact. Apgars 9/9. EBL 200 cc. Both mother and are doing well. Objective Result Diagram: 09/11/17 1313 Radha Alonzo MD Sep 11, 2017 17:58
[2017-09-11] MEDS ORDERED: PENICILLIN G POTASSIUM INJ 2,500,000 UNITS in SODIUM CHLORIDE 0.9% INJ 100 ML IV SCH (18:00)
[2017-09-11 20:42] VITALS: BP 115/79; PULSE 69; RESP 18; TEMP 97.6
[2017-09-11] MEDS ORDERED: AMMONIA AROMATIC INHALANT 0.33 ML ONE (20:47)
[2017-09-12] MEDS ORDERED: BENZOCAINE 20% TOPICAL SPRAY 60 ML CAN TOPICAL PRN (00:30)
[2017-09-12] MEDS ORDERED: WITCH HAZEL 50%/GLYCERIN 12.5% 40 PAD JAR TOPICAL PRN (00:30)
[2017-09-12] MEDS ORDERED: ACETAMINOPHEN 325 MG TAB PO PRN (00:30)
[2017-09-12] MEDS ORDERED: ZOLPIDEM TARTRATE 5 MG TAB PO PRN (00:30)
[2017-09-12] MEDS ORDERED: ONDANSETRON ODT 4 MG TAB PO PRN (00:30)
[2017-09-12] MEDS ORDERED: OXYTOCIN 30 UNITS-500ML PREMIX 500 ML IV SCH (00:30)
[2017-09-12] MEDS ORDERED: DOCUSATE SODIUM 50 MG/SENNA 8.6 MG TAB PO PRN (00:30)
[2017-09-12] MEDS ORDERED: SODIUM CHLORIDE 0.9% FLUSH 10 ML FLUSH IV FLUSH PRN (00:30)
[2017-09-12] MEDS ORDERED: ALUMINUM/MAGNESIUM/SIMETH 30 ML CUP PO PRN (00:30)
[2017-09-12] MEDS: IBUPROFEN 800 MG TAB PO PRN ×3 (00:58→21:00)
--- NOTE | 2017-09-12 06:27 | PD.LABORPN ---
Objective Objective Pelvic Exam: Cervix: [-] Dilatation: [-] Effacement: [-] Station: [-] Presentation: [-] Membranes: [intact or ruptured] Uterine Contractions: [-] FHT's: Category: [-] Baseline: [-] Reactive: [-] Variability: [-] Decels: [-] Weeks Gestation: 40 Pt started active labor?: Yes Medical induction of labor?: No Artificial rupture of membrane: Yes Luci Garrison MD R2 Sep 12, 2017 06:27
--- NOTE | 2017-09-12 06:35 | HHI.OB ---
Subjective Post Day: 1 Remarks day # 1. AFVSS overnight. Pain well-controlled. Lochia same as a period. Denies dysuria. No breast tenderness. She is feeding the baby via breast/bottle. Appetite good. No nausea or vomiting. Ambulating well. Denies calf pain, shortness of breath, or chest pain. Otherwise, she is doing well this morning and has no other complaints. Objective Vitals/I&O Vital Signs Date Time Temp Pulse Resp B/P (MAP) Pulse Ox O2 Delivery O2 Flow Rate FiO2 09/11/17 20:42 97.6 69 18 115/79 (91) Objective Remarks GENERAL: Well-nourished, well-developed patient. CARDIOVASCULAR: Regular rate and rhythm without murmurs, gallops, or rubs. RESPIRATORY: Breath sounds equal bilaterally. No accessory muscle use. ABDOMEN/GI: Abdomen soft, non-tender. Fundus: Firm, non-tender below umbilicus. GENITOURINARY: Light to moderate bleeding. EXTREMITIES: No cyanosis or edema, non-tender, without signs of DVT. Medications and IVs Current Medications Medications (Trade) Dose Ordered Sig/Peter Route Start Time Stop Time Status Last Admin Lactated Ringer's 1,000 ml @ 125 mls/hr Q8H IV 09/11/17 13:17 09/11/17 14:43 Lactated Ringer's 1,000 ml @ 3,000 mls/hr Q20M PRN IV 09/11/17 13:17 Sodium Chloride 500 ml @ 1,000 mls/hr ONCE PRN IV 09/11/17 13:30 09/12/17 13:29 Sodium Chloride 1,000 ml @ 100 mls/hr Q10H PRN IV 09/11/17 13:37 (Xylocaine 1% Inj (50 ml)) 0.1 ml UNSCH X1 PRN I-DERMAL 09/11/17 13:30 09/14/17 13:29 (Bicitra Liq) 30 ml BOATING SAF[employer]Y OFFICER PO 09/11/17 13:30 09/15/17 13:29 (fentaNYL INJ) 50 mcg Q1H PRN IV PUSH 09/11/17 13:30 (fentaNYL INJ) 100 mcg Q1H PRN IV PUSH 09/11/17 13:30 Penicillin G Potassium [id number] units/Sodium Chloride 100 ml @ 200 mls/hr Q4H IV 09/11/17 18:00 (Xylocaine 1% Inj (50 ml)) 10 ml UNSCH X1 PRN INFIL 09/11/17 13:30 09/13/17 13:29 (Muri-Lube Oil) 10 ml UNSCH PRN TOPICAL 09/11/17 13:30 (NS Flush) 2 ml BID IV FLUSH 09/12/17 09:00 (NS Flush) 2 ml UNSCH PRN IV FLUSH 09/12/17 00:30 (Tylenol) 650 mg Q4H PRN PO 09/12/17 00:30 (Motrin) 800 mg Q8H PRN PO 09/12/17 00:30 09/12/17 00:58 (Percocet 5-325 Mg) 1 tab Q4H PRN PO 09/12/17 00:30 (Percocet 5-325 Mg) 2 tab Q4H PRN PO 09/12/17 00:30 (Americaine 20% Top Spr) 1 spray Q4H PRN TOPICAL 09/12/17 00:30 (Tucks Pads) 1 applic QID PRN TOPICAL 09/12/17 00:30 (Oralia-Colace) 2 tab Q12H PRN PO 09/12/17 00:30 (Ambien) 5 mg HS PRN PO 09/12/17 00:30 (M-M-R Ii Inj) 0.5 ml ONCE ONCE SQ 09/12/17 16:00 09/12/17 16:01 (Boostrix Inj) 0.5 ml ONCE ONCE IM 09/12/17 16:00 09/12/17 16:01 (Mag-Al Plus Susp Liq) 15 ml Q8H PRN PO 09/12/17 00:30 (Zofran Odt) 4 mg Q6H PRN PO 09/12/17 00:30 Assessment/Plan Problem List: (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 Advised pelvic rest for 6 wks -Will need a follow-up appointment within 6 wks for post- check -Re: ctrl -would like Seasonique oral control pills that she had before Discussed with Dr. Alonzo Discharge Planning Discharge home in 1 day Luci Garrison MD R2 Sep 12, 2017 06:35
[2017-09-12] MEDS ORDERED: SODIUM CHLORIDE 0.9% FLUSH 10 ML FLUSH IV FLUSH SCH (09:00)
[2017-09-12] MEDS: oxyCODONE/ACETAMINOPHEN 5 MG/325 MG TAB PO PRN ×3 (09:21→21:00)
[2017-09-12] MEDS: LACTATED RINGER'S 1000 ML INJ 1,000 ML IV SCH (14:45)
[2017-09-12] MEDS ORDERED: DIPHTH/TETANUS/ACEL PERTUSSIS (BOOSTER) 0.5 ML VIAL/PFS IM ONE (16:00)
[2017-09-12] MEDS ORDERED: MEASLES, MUMPS, RUBELLA VACCINE 0.5 ML VIAL SQ ONE (16:00)
[2017-09-12 20:20] VITALS: BP 134/79; PULSE 73; RESP 18; TEMP 98.1
[2017-09-13] MEDS: oxyCODONE/ACETAMINOPHEN 5 MG/325 MG TAB PO PRN ×3 (02:00→10:40)
[2017-09-13] MEDS: IBUPROFEN 800 MG TAB PO PRN ×2 (06:01→15:05)
--- NOTE | 2017-09-13 07:06 | HHI.DCPOC ---
Discharge Care Plan Diagnosis: (1) Single liveborn delivered vaginally (2) GBS carrier Report Symptoms to Your Doctor -Temperature above 100.5 degrees -Redness, of incision or excessive or foul smelling drainage -Unusual pain or calf pain -Increased vaginal bleeding -Painful or difficulty urinating -Feelings of extreme sadness or anxiety after 2 weeks Goals to Promote Your Health * To prevent worsening of your condition and complications * To maintain your health at the optimal level Directions to Meet Your Goals Take your medications as prescribed Follow your dietary instruction Follow activity as directed Ensure plenty of rest for recovery Drink fluids for hydration Keep your appointments as scheduled Take your immunizations and boosters as scheduled If your symptoms worsen call your PCP, if no PCP go to Urgent Care Center or Emergency Room Smoking is Dangerous to Your Health. Avoid second hand smoke Call the 24-hour crisis hotline for domestic abuse at Luci Garrison MD R2 Sep 13, 2017 07:06
[2017-09-13] MEDS ORDERED: IBUP1TAB7 PO (07:07)
[2017-09-13] MEDS ORDERED: PERI PO (07:34)
--- NOTE | 2017-09-13 08:40 | HHI.OB ---
Subjective Post Day: 2 Remarks day # 2. AFVSS overnight. Pain well-controlled. Lochia same as a period. Denies dysuria. No breast tenderness. She is feeding the baby via breast/bottle. Appetite good. No nausea or vomiting. Ambulating well. Denies calf pain, shortness of breath, or chest pain. Otherwise, she is doing well this morning and has no other complaints. Objective Vitals/I&O Vital Signs Date Time Temp Pulse Resp B/P (MAP) Pulse Ox O2 Delivery O2 Flow Rate FiO2 09/12/17 20:20 98.1 73 18 134/79 (97) Objective Remarks GENERAL: Well-nourished, well-developed patient. CARDIOVASCULAR: Regular rate and rhythm without murmurs, gallops, or rubs. RESPIRATORY: Breath sounds equal bilaterally. No accessory muscle use. ABDOMEN/GI: Abdomen soft, non-tender. Fundus: Firm, non-tender below umbilicus. GENITOURINARY: Light to moderate bleeding. EXTREMITIES: No cyanosis or edema, non-tender, without signs of DVT. Medications and IVs Current Medications Medications (Trade) Dose Ordered Sig/Peter Route Start Time Stop Time Status Last Admin Lactated Ringer's 1,000 ml @ 125 mls/hr Q8H IV 09/11/17 13:17 09/11/17 14:43 Lactated Ringer's 1,000 ml @ 3,000 mls/hr Q20M PRN IV 09/11/17 13:17 Sodium Chloride 1,000 ml @ 100 mls/hr Q10H PRN IV 09/11/17 13:37 (Xylocaine 1% Inj (50 ml)) 0.1 ml UNSCH X1 PRN I-DERMAL 09/11/17 13:30 09/14/17 13:29 (Bicitra Liq) 30 ml PRODUCTION CLOTH CUTTER PO 09/11/17 13:30 09/15/17 13:29 (fentaNYL INJ) 50 mcg Q1H PRN IV PUSH 09/11/17 13:30 (fentaNYL INJ) 100 mcg Q1H PRN IV PUSH 09/11/17 13:30 Penicillin G Potassium [id number] units/Sodium Chloride 100 ml @ 200 mls/hr Q4H IV 09/11/17 18:00 (Xylocaine 1% Inj (50 ml)) 10 ml UNSCH X1 PRN INFIL 09/11/17 13:30 09/13/17 13:29 (Muri-Lube Oil) 10 ml UNSCH PRN TOPICAL 09/11/17 13:30 (NS Flush) 2 ml BID IV FLUSH 09/12/17 09:00 (NS Flush) 2 ml UNSCH PRN IV FLUSH 09/12/17 00:30 (Tylenol) 650 mg Q4H PRN PO 09/12/17 00:30 (Motrin) 800 mg Q8H PRN PO 09/12/17 00:30 09/13/17 06:01 (Percocet 5-325 Mg) 1 tab Q4H PRN PO 09/12/17 00:30 09/13/17 06:01 (Percocet 5-325 Mg) 2 tab Q4H PRN PO 09/12/17 00:30 09/13/17 02:00 (Americaine 20% Top Spr) 1 spray Q4H PRN TOPICAL 09/12/17 00:30 09/12/17 09:22 (Tucks Pads) 1 applic QID PRN TOPICAL 09/12/17 00:30 09/12/17 09:22 (Oralia-Colace) 2 tab Q12H PRN PO 09/12/17 00:30 (Ambien) 5 mg HS PRN PO 09/12/17 00:30 (Mag-Al Plus Susp Liq) 15 ml Q8H PRN PO 09/12/17 00:30 (Zofran Odt) 4 mg Q6H PRN PO 09/12/17 00:30 Assessment/Plan Problem List: (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 Advised pelvic rest for 6 wks -Will need a follow-up appointment within 6 wks for post- check -Re: ctrl -would like Seasonique oral control pills that she had before Discussed with Dr. Albarran Discharge Planning Discharge home in today Luci Garrison MD R2 Sep 13, 2017 08:40
[2017-09-13] MEDS: LACTATED RINGER'S 1000 ML INJ 1,000 ML IV SCH (09:15)
== END 2017-09-13 17:54 | disposition home or self-care (01) | DRG 775 ==
LOC: HOBED 12:57 → H2EB 13:13 → H1EA 20:21
PROVIDERS: ADMIT Obstetrics & Gynecology; ATTEND Obstetrics & Gynecology
PROC: 10E0XZZ Delivery of Products of Conception, External Approach (ICD-10-PCS; principal; 2017-09-11)
PROC: 10907ZC Drainage of Amniotic Fluid, Therapeutic from Products of Conception, Via Natural or Artificial Opening (ICD-10-PCS; 2017-09-11)
PROC: 3E0R3BZ Introduction of Anesthetic Agent into Spinal Canal, Percutaneous Approach (ICD-10-PCS; 2017-09-11)
PROC: 00HU33Z Insertion of Infusion Device into Spinal Canal, Percutaneous Approach (ICD-10-PCS; 2017-09-11)
DX: O99.324 Drug use complicating childbirth (principal); F12.90 Cannabis use, unspecified, uncomplicated; O99.334 Smoking (tobacco) complicating childbirth; F17.210 Nicotine dependence, cigarettes, uncomplicated; O99.824 Streptococcus B carrier state complicating childbirth; O99.52 Diseases of the respiratory system complicating childbirth; J45.909 Unspecified asthma, uncomplicated; Z37.0 Single live birth; Z3A.40 40 weeks gestation of pregnancy
CPT/HCPCS: 80074; 80307; 81001; 85025; 86592; 86762; 87150; 87389; G0475; G0481; J2540; J2590; J7120